=== PATIENT | male | born 1940 | race Caucasian/White ===

== ENCOUNTER → 2016-05-16 | Outpatient (CLI) | payer MEDICARE ==
[~2016-05-16] MED LIST: AMLODIPINE10 MG PO; ASPIRIN CHILDRE81 MG PO; CIPRO500 MG PO; CIPRODEX 0.3%-7.5 ML OT; CLOPIDOGREL75 MG PO; EFFEXOR PO; FLAGYL500 M1 PO; GLYBURIDE5 MG PO; LEVEMIR SC; LEXAPRO5 M1 PO; LISINOPRIL5 MG PO; LOPRESSOR25 MG PO; MECLIZINE HCL25 M2 PO; MECLIZINE25 MG PO; MEDROL DOSEPAK4 MG PO; METFORMIN500 MG PO; NORCO 5-325 TA1 EACH PO; PRINIVIL20 MG PO; PROVENTIL0.09 MG/A1 INH; SYNTHROID PO; SYNTHROID0.15 MG PO; VIBRAMYCIN100 MG PO; VICODIN ES 7501 TAB PO; Zofran4 MG PO
[2016-05-16 07:50] LABS: HEMATOCRIT 42.1 % (42.0-52.0); HEMOGLOBIN 13.7 g/dl (14.0-18.0); MEAN CELL VOLUME 88.3 fl (80.0-94.0); MEAN CORPUSCULAR HGB 28.7 pg (27.0-31.0); MEAN CORPUSCULAR HGB CONC 32.5 g/dl (33.0-37.0); RED BLOOD COUNT 4.77 10*6/uL (4.50-5.90); RED CELL DISTRI WIDTH 13.5 % (0-14.5); WHITE BLOOD COUNT 9.2 10*3/uL (4.8-10.8)
[2016-05-16 08:24] LABS: ALBUMIN 3.4 gm/dl (3.1-4.5); ALKALINE PHOSPHATASE 89 U/L (45-117); BILIRUBIN, TOTAL 0.5 mg/dl (0.2-1.0); BUN 22 mg/dl (7-24); CARBON DIOXIDE 27 mmol/L (21-32); CHLORIDE 106 mmol/L (98-107); CHOLESTEROL 143 mg/dL (<200); EST GLOM FILT AFRICAN AMERICAN > 60 ml/min; GLUCOSE 97 mg/dL (65-99); HDL CHOLESTEROL 44 mg/dl (40-60); LDL CHOLESTEROL 75 mg/dL (9-159); POTASSIUM 4.2 mmol/L (3.5-5.1); SGOT/AST 16 IU/L (3-35); SGPT/ALT 22 U/L (12-78); SODIUM 141 mmol/L (136-145); TOTAL PROTEIN 7.1 gm/dL (6.4-8.2); TRIGLYCERIDES 120 mg/dl (<150); VLDL CHOLESTEROL 24 mg/dL (6-40)
[2016-05-16 08:31] LABS: VITAMIN D, 25-HYDROXY 22.8 ng/mL (30-100)
== END | disposition home or self-care (01) ==
LOC: LAB 07:23
PROVIDERS: Internal Medicine
DX: E55.9 Vitamin D deficiency, unspecified (principal); I10 Essential (primary) hypertension; E11.9 Type 2 diabetes mellitus without complications

== ENCOUNTER 2016-05-24 13:47 | Emergency (ER) | payer MEDICARE ==
[~2016-05-24] VITALS: Ht 167.6 cm; Wt 90.7 kg
[2016-05-24 14:03] VITALS: BP 158/90
[2016-05-24] MEDS ORDERED: NAPROSYN500 MG PO (14:21)
== END 2016-05-24 15:27 | disposition home or self-care (01) ==
LOC: ED 13:47
DX: S40.011A Contusion of right shoulder, initial encounter (principal); S80.02XA Contusion of left knee, initial encounter; S30.0XXA Contusion of lower back and pelvis, initial encounter; F17.200 Nicotine dependence, unspecified, uncomplicated; F41.8 Other specified anxiety disorders; I10 Essential (primary) hypertension; E03.9 Hypothyroidism, unspecified; E11.9 Type 2 diabetes mellitus without complications; Z79.82 Long term (current) use of aspirin; W18.30XA Fall on same level, unspecified, initial encounter; Y93.89 Activity, other specified; Y92.9 Unspecified place or not applicable; Y99.9 Unspecified external cause status

== ENCOUNTER → 2016-06-12 | Outpatient (CLI) | payer MEDICARE ==
[~2016-06-12] MED LIST changes: +NAPROSYN500 MG PO
== END | disposition home or self-care (01) ==
LOC: US 04:54
DX: M79.662 Pain in left lower leg (principal)

== ENCOUNTER 2016-11-06 | Emergency (ER) | payer MEDICARE ==
[~2016-11-06] VITALS: Ht 167.6 cm; Wt 90.7 kg
[2016-11-06 00:05] VITALS: BP 159/99
[2016-11-06] MEDS ORDERED: ROBAXIN500 M1 PO (00:19)
[2016-11-06] MEDS ORDERED: ANAPROX DS550 MG PO (00:47)
== END 2016-11-06 01:11 | disposition home or self-care (01) ==
LOC: ED
DX: M51.36 Other intervertebral disc degeneration, lumbar region (principal); M54.5 Low back pain; F17.210 Nicotine dependence, cigarettes, uncomplicated; Z96.651 Presence of right artificial knee joint; Z98.890 Other specified postprocedural states; Z79.899 Other long term (current) drug therapy; Z79.82 Long term (current) use of aspirin

== ENCOUNTER → 2017-01-14 | Outpatient (CLI) | payer MEDICARE ==
[~2017-01-14] MED LIST changes: +ANAPROX DS550 MG PO; +ROBAXIN500 M1 PO
== END | disposition home or self-care (01) ==
LOC: US 00:04
DX: I73.9 Peripheral vascular disease, unspecified (principal); I74.3 Embolism and thrombosis of arteries of the lower extremities; I10 Essential (primary) hypertension; E11.9 Type 2 diabetes mellitus without complications

== ENCOUNTER → 2017-05-06 | Day surgery (SDC) | payer MEDICARE ==
[~2017-05-06] VITALS: Ht 167.6 cm; Wt 131.5 kg
--- NOTE | ~2017-05-06 | O ---
[place], [place] OPERATIVE NOTE NAME: [facility] [id number] UNIT #: [id number] ROOM: DOCTOR: ANDREAS WATERS MD BIRTHDATE: [birth year] DOS: 05/06/2017 PREOPERATIVE DIAGNOSIS: Cataract, left eye. POSTOPERATIVE DIAGNOSIS: Cataract, left eye. OPERATION: Extracapsular cataract extraction by phacoemulsification with posterior chamber intraocular lens implantation, left eye. ANESTHESIA: Monitored standby. OPERATIVE FINDINGS AND PROCEDURE: 2% Xylocaine topical anesthetic gel was applied to the eye in the preop area. The patient was taken to the operating room and prepped and draped in the standard fashion for sterile intraocular surgery. A time out procedure was performed verifying correct patient, correct site and corrects lens with Naga Waters MD. The operating microscope was swung into position and the lid speculum was inserted. Using a Elizabeth paracentesis blade, a paracentesis was made through clear cornea. Viscoelastic was used to fill the anterior chamber. Using a metal keratome a 2.4 mm self-sealing clear corneal cataract incision was made temporally at the limbus. Using a pre-bent 25 gauge cystotome needle, a standard continuous curvilinear capsulorrhexis was performed. The anterior capsule was removed with forceps. The lens nucleus was hydrodissected and phacoemulsified in the posterior chamber. Cortical material was removed with the irrigation aspiration hand piece and the posterior capsule was then polished with a curet under irrigation. The posterior chamber and capsular bag were filled with viscoelastic. A posterior chamber intraocular lens manufactured by: Tab, Model #[id number], and 18.5 diopters in strength were then inserted into the posterior chamber and within the capsular bag using the lens cartridge and injector system. Viscoelastic was removed using the irrigation aspiration handpiece. The anterior chamber was filled with balanced salt solution through the paracentesis. Both the paracentesis site and cataract incisions were hydrated with BSS and verified to be water-tight and self-sealing. Cefuroxime 1 mg/0.1 mL was injected into the anterior chamber through the paracentesis site. The incision checked to be water-tight using a Weck-Linda sponge. The integrity of the cataract wound and ocular tension were checked. Lid speculum and drapes were removed. The patient was transferred from the operating room to the recovery room in satisfactory condition. [place], [place] OPERATIVE NOTE NAME: FABIOLA LANRDY UNIT #: [id number] ROOM: DOCTOR: ANDREAS WATERS MD BIRTHDATE: [birth year] ANDREAS WATERS MD CM:OPRECORD:OPERATIVE NOTE [id number] ANDREAS WATERS MD 05/06/17 1001 interface
[2017-05-06 07:20] VITALS: BP 157/79
[2017-05-06 08:03] VITALS: BP 134/74
[2017-05-06 08:08] VITALS: BP 138/72
[2017-05-06 08:26] VITALS: BP 129/74
== END ==
LOC: SDC 05-01 08:00
DX: E11.36 Type 2 diabetes mellitus with diabetic cataract (principal); H25.812 Combined forms of age-related cataract, left eye; I10 Essential (primary) hypertension; Z96.653 Presence of artificial knee joint, bilateral; Z82.49 Family history of ischemic heart disease and other diseases of the circulatory system; E66.01 Morbid (severe) obesity due to excess calories; E07.89 Other specified disorders of thyroid; Z79.899 Other long term (current) drug therapy; M19.90 Unspecified osteoarthritis, unspecified site

== ENCOUNTER → 2017-05-22 | Outpatient (CLI) | payer OTHER, MEDICARE ==
[2017-05-22 08:16] LABS: BASO # 0.1 10*3/uL (0.0-0.1); BASO % 0.7 % (0.0-1.0); EOS # 0.3 10*3/uL (0.0-0.4); EOS % 3.2 % (1.0-4.0); HEMATOCRIT 42.9 % (42.0-52.0); HEMOGLOBIN 14.2 g/dl (14.0-18.0); LYMPH # 2.3 10*3/uL (1.3-4.4); LYMPH % 27.5 % (27.0-41.0); MEAN CELL VOLUME 87.9 fl (80.0-94.0); MEAN CORPUSCULAR HGB 29.1 pg (27.0-31.0); MEAN CORPUSCULAR HGB CONC 33.1 g/dl (33.0-37.0); MEAN PLATELET VOLUME 10.7 fl (9.6-12.3); MONO # 0.7 10*3/uL (0.1-1.0); MONO % 8.6 % (3.0-9.0); NEUT # 4.8 10*3/uL (2.3-7.9); NEUT % 58.8 % (47.0-73.0); PLATELET COUNT AUTOMATED 301 10*3/uL (130-400); RED BLOOD COUNT 4.88 10*6/uL (4.50-5.90); RED CELL DISTRI WIDTH 13.4 % (0-14.5); WHITE BLOOD COUNT 8.2 10*3/uL (4.8-10.8)
[2017-05-22 08:27] LABS: ALBUMIN 3.4 gm/dl (3.1-4.5); ALKALINE PHOSPHATASE 101 U/L (45-117); BUN 18 mg/dl (7-24); CHLORIDE 106 mmol/L (98-107); CHOLESTEROL 85 mg/dL (<200); CREATININE 1.03 mg/dL (0.70-1.30); HDL CHOLESTEROL 31 mg/dl (40-60); LDL CHOLESTEROL 30 mg/dL (9-159); SGOT/AST 13 IU/L (3-35); SGPT/ALT 19 U/L (12-78); SODIUM 142 mmol/L (136-145); TOTAL PROTEIN 7.2 gm/dL (6.4-8.2); TRIGLYCERIDES 121 mg/dl (<150); VLDL CHOLESTEROL 24 mg/dL (6-40)
[2017-05-22 08:33] LABS: THYROID STIM HORMONE (HS) 0.475 uIU/ml (0.358-4.75)
== END | disposition home or self-care (01) ==
LOC: LAB 07:28
PROVIDERS: Internal Medicine
DX: E11.42 Type 2 diabetes mellitus with diabetic polyneuropathy (principal); E78.2 Mixed hyperlipidemia

== ENCOUNTER → 2017-05-27 | Day surgery (SDC) | payer OTHER, MEDICARE ==
[~2017-05-27] VITALS: Ht 170.1 cm; Wt 131.5 kg
--- NOTE | ~2017-05-27 | O ---
[place], [place] OPERATIVE NOTE NAME: FABIOLA LANDRY [facility] #: [id number] UNIT #: [id number] ROOM: DOCTOR: ANDREAS WATERS MD BIRTHDATE: [birth year] DOS: 05/27/2017 PREOPERATIVE DIAGNOSIS: Cataract, right eye. POSTOPERATIVE DIAGNOSIS: Cataract, right eye. OPERATION: Extracapsular cataract extraction by phacoemulsification with posterior chamber intraocular lens implantation, right eye. ANESTHESIA: Monitored standby. OPERATIVE FINDINGS AND PROCEDURE: 2% Xylocaine topical anesthetic gel was applied to the eye in the preop area. The patient was taken to the operating room and prepped and draped in the standard fashion for sterile intraocular surgery. A time out procedure was performed verifying correct patient, correct site and corrects lens with Naga Waters M.D. The operating microscope was swung into position and the lid speculum was inserted. Using a Elizabeth paracentesis blade, a paracentesis was made through clear cornea. Viscoelastic was used to fill the anterior chamber. Using a metal keratome a 2.4 mm self-sealing clear corneal cataract incision was made temporally at the limbus. Using a pre-bent 25 gauge cystotome needle, a standard continuous curvilinear capsulorrhexis was performed. The anterior capsule was removed with forceps. The lens nucleus was hydrodissected and phacoemulsified in the posterior chamber. Cortical material was removed with the irrigation aspiration hand piece and the posterior capsule was then polished with a curet under irrigation. The posterior chamber and capsular bag were filled with viscoelastic. A posterior chamber intraocular lens manufactured by: Tab, Model #[id number], and 20.0 diopters in strength were then inserted into the posterior chamber and within the capsular bag using the lens cartridge and injector system. Viscoelastic was removed using the irrigation aspiration handpiece. The anterior chamber was filled with balanced salt solution through the paracentesis. Both the paracentesis site and cataract incisions were hydrated with BSS and verified to be water-tight and self-sealing. Cefuroxime 1 mg/0.1 mL was injected into the anterior chamber through the paracentesis site. The incision checked to be water-tight using a Weck-Linda sponge. The integrity of the cataract wound and ocular tension were checked. Lid speculum and drapes were removed. The patient was transferred from the operating room to the recovery room in satisfactory condition. [place], [place] OPERATIVE NOTE NAME: FABIOLA LANDRY UNIT #: [id number] ROOM: DOCTOR: ANDREAS WATERS MD BIRTHDATE: [birth year] ANDREAS WATERS MD CM:OPRECORD:OPERATIVE NOTE [id number] ANDREAS WATERS MD 05/27/17 1107 interface
[2017-05-27 10:12] VITALS: BP 144/84
[2017-05-27 10:46] VITALS: BP 133/75
[2017-05-27 11:01] VITALS: BP 155/85
[2017-05-27 11:16] VITALS: BP 150/87
== END | disposition home or self-care (01) ==
LOC: SDC 05-25 11:00
DX: E11.36 Type 2 diabetes mellitus with diabetic cataract (principal); I10 Essential (primary) hypertension; Z96.653 Presence of artificial knee joint, bilateral; Z82.49 Family history of ischemic heart disease and other diseases of the circulatory system; F17.210 Nicotine dependence, cigarettes, uncomplicated

== ENCOUNTER → 2017-08-19 | Outpatient (CLI) | payer OTHER, MEDICARE ==
[2017-08-19 02:48] LABS: BUN 22 mg/dl (7-24); CREATININE 0.98 mg/dL (0.70-1.30)
== END | disposition home or self-care (01) ==
LOC: LAB 01:20
PROVIDERS: Thoracic Surgery (Cardiothoracic Vascular Surgery)
DX: I73.9 Peripheral vascular disease, unspecified (principal)

== ENCOUNTER → 2017-10-22 | Outpatient (CLI) | payer OTHER, MEDICARE | END | disposition home or self-care (01) | LOC: CARD 12:00 | DX: I44.4 Left anterior fascicular block (principal); I73.9 Peripheral vascular disease, unspecified ==

== ENCOUNTER → 2017-12-07 | Outpatient (CLI) | payer OTHER, MEDICARE ==
[2017-12-07 12:17] LABS: HEMATOCRIT 40.2 % (42.0-52.0); HEMOGLOBIN 12.6 g/dl (14.0-18.0); MEAN CELL VOLUME 92.6 fl (80.0-94.0); MEAN CORPUSCULAR HGB CONC 31.3 g/dl (33.0-37.0); RED BLOOD COUNT 4.34 10*6/uL (4.50-5.90); RED CELL DISTRI WIDTH 14.5 % (0-14.5); WHITE BLOOD COUNT 8.6 10*3/uL (4.8-10.8)
[2017-12-07 12:32] LABS: ALBUMIN 3.9 gm/dl (3.1-4.5); ALKALINE PHOSPHATASE 85 U/L (45-117); BUN 16 mg/dl (7-24); CHLORIDE 104 mmol/L (98-107); CHOLESTEROL 152 mg/dL (<200); CREATININE 0.94 mg/dL (0.70-1.30); HDL CHOLESTEROL 35 mg/dl (40-60); LDL CHOLESTEROL 82 mg/dL (9-159); POTASSIUM 4.2 mmol/L (3.5-5.1); SGOT/AST 13 IU/L (3-35); SGPT/ALT 19 U/L (12-78); SODIUM 139 mmol/L (136-145); TOTAL PROTEIN 7.8 gm/dL (6.4-8.2); TRIGLYCERIDES 176 mg/dl (<150); VLDL CHOLESTEROL 35 mg/dL (6-40)
== END | disposition home or self-care (01) ==
LOC: LAB 11:45
PROVIDERS: Physician Assistant
DX: E11.42 Type 2 diabetes mellitus with diabetic polyneuropathy (principal)

== ENCOUNTER → 2017-12-17 | Outpatient (CLI) | payer OTHER, MEDICARE | END | disposition home or self-care (01) | LOC: US 02:38 | DX: I65.23 Occlusion and stenosis of bilateral carotid arteries (principal); E11.42 Type 2 diabetes mellitus with diabetic polyneuropathy; I10 Essential (primary) hypertension ==

== ENCOUNTER → 2018-05-30 | Outpatient (CLI) | payer OTHER, MEDICARE | END | disposition home or self-care (01) | LOC: LAB 00:26 | DX: J06.9 Acute upper respiratory infection, unspecified (principal) ==

== ENCOUNTER → 2018-08-30 | Outpatient (CLI) | payer OTHER, MEDICARE ==
[2018-08-30 03:07] LABS: MEAN CORPUSCULAR HGB 28.6 pg (27.0-31.0); MEAN CORPUSCULAR HGB CONC 31.8 g/dl (33.0-37.0); MEAN PLATELET VOLUME 11.1 fl (9.6-12.3); RED BLOOD COUNT 4.89 10*6/uL (4.50-5.90); RED CELL DISTRI WIDTH 13.5 % (0-14.5); WHITE BLOOD COUNT 8.1 10*3/uL (4.8-10.8)
[2018-08-30 03:24] LABS: ALBUMIN 3.7 gm/dl (3.1-4.5); BUN 22 mg/dl (7-24); CHLORIDE 105 mmol/L (98-107); CHOLESTEROL 165 mg/dL (<200); CREATININE 0.99 mg/dL (0.70-1.30); POTASSIUM 4.1 mmol/L (3.5-5.1); SGOT/AST 13 IU/L (3-35); SGPT/ALT 20 U/L (12-78); SODIUM 139 mmol/L (136-145); TOTAL PROTEIN 7.3 gm/dL (6.4-8.2); TRIGLYCERIDES 171 mg/dl (<150); VLDL CHOLESTEROL 34 mg/dL (6-40)
[2018-08-30 03:25] LABS: ALKALINE PHOSPHATASE 107 U/L (45-117); HDL CHOLESTEROL 34 mg/dl (40-60); LDL CHOLESTEROL 97 mg/dL (9-159)
== END | disposition home or self-care (01) ==
LOC: LAB 02:45
PROVIDERS: Physician Assistant
DX: E11.42 Type 2 diabetes mellitus with diabetic polyneuropathy (principal)

== ENCOUNTER 2018-11-12 13:12 | Inpatient (IN) | payer MEDICARE ==
[~2018-11-12] VITALS: Ht 167.6 cm; Wt 87.1 kg
[2018-11-12] VITALS (7 sets, daily range): BP systolic 125–160; BP diastolic 77–84
--- NOTE | 2018-11-12 13:30 | NUR ---
BGL 153.
[2018-11-12 13:37] LABS: BASO # 0.1 10*3/uL (0.0-0.1); BASO % 0.6 % (0.0-1.0); EOS # 0.2 10*3/uL (0.0-0.4); EOS % 2.2 % (1.0-4.0); HEMATOCRIT 44.7 % (42.0-52.0); HEMOGLOBIN 14.8 g/dl (14.0-18.0); LYMPH # 1.7 10*3/uL (1.3-4.4); LYMPH % 17.5 % (27.0-41.0); MEAN CELL VOLUME 87.3 fl (80.0-94.0); MEAN CORPUSCULAR HGB 28.9 pg (27.0-31.0); MEAN CORPUSCULAR HGB CONC 33.1 g/dl (33.0-37.0); MEAN PLATELET VOLUME 10.5 fl (9.6-12.3); MONO # 0.8 10*3/uL (0.1-1.0); MONO % 7.9 % (3.0-9.0); NEUT # 6.9 10*3/uL (2.3-7.9); NEUT % 70.9 % (47.0-73.0); PLATELET COUNT AUTOMATED 359 10*3/uL (130-400); RED BLOOD COUNT 5.12 10*6/uL (4.50-5.90); RED CELL DISTRI WIDTH 13.3 % (0-14.5); WHITE BLOOD COUNT 9.7 10*3/uL (4.8-10.8)
[2018-11-12 13:49] LABS: ACT PARTIAL THROMBO TIME 23.9 SECONDS (20.0-32.1); INTERNATIONAL NORM RATIO 0.9 (2.0-3.5)
[2018-11-12 13:54] LABS: ALBUMIN 3.7 gm/dl (3.1-4.5); ALKALINE PHOSPHATASE 108 U/L (45-117); BUN 20 mg/dl (7-24); CHLORIDE 107 mmol/L (98-107); CREATININE 1.05 mg/dL (0.70-1.30); POTASSIUM 3.9 mmol/L (3.5-5.1); SGOT/AST 11 IU/L (3-35); SGPT/ALT 21 U/L (12-78); SODIUM 139 mmol/L (136-145); TOTAL PROTEIN 7.8 gm/dL (6.4-8.2)
[2018-11-12 13:55] LABS: TROPONIN I < 0.015 ng/ml (<0.045)
--- NOTE | 2018-11-12 13:55 | NUR ---
UNABLE TO PROVIDE URINE SPECIMEN AT THSI TIME BUT STATES HE SHOULD BE ABLE TO GO SOON.
--- NOTE | 2018-11-12 14:38 | NUR ---
UPDATED AND CONTINUES TO REST COMFORTABLY. DENIES ANY NEEDS AND SIGNIFICANT OTHER IS AT THE BEDSIDE. WILL MONITOR.
--- NOTE | 2018-11-12 15:01 | NUR ---
Aware of plan to admit and continues to deny CP at this time. Appears less flushed and clammy and states he is feeling a bit better. Ambulatory to the bathroom for urine specimen.
--- NOTE | 2018-11-12 15:13 | NUR ---
Ambulated back to bed. Denied any CP or SOB. Awaiting room assignment. Will continue to monitor.
[2018-11-12 15:42] LABS: BILIRUBIN 1+ (NEGATIVE); BLOOD NEGATIVE (NEGATIVE); CLARITY CLEAR (CLEAR); COLOR YELLOW (YELLOW); GLUCOSE 1+ (NEGATIVE); KETONE NEGATIVE (NEGATIVE); LEUKO ESTERASE NEGATIVE (NEGATIVE); NITRITE NEGATIVE (NEGATIVE); PH 5.5 (5.0-9.0); SPECIFIC GRAVITY 1.025 (1.005-1.030); UROBILINOGEN 0.2 E.U./dl (0.2-1.0)
--- NOTE | 2018-11-12 15:47 | NUR ---
ADMITTING PHYSICIAN MEMBER AT THE BEDSIDE.
[2018-11-12 16:00] LABS: CALCIUM OXALATE CRYSTALS 3+; MUCOUS 3+
--- NOTE | 2018-11-12 16:08 | NUR ---
SPOKE WITH GIOVANA, RECEIVING RN TO ADVISE OF ETA. SHE IS READY FOR PATIENT.
--- NOTE | 2018-11-12 16:12 | NUR ---
Resident reports that he still had an EKG on patient. New EKG placed with chart for patient's admission.
--- NOTE | 2018-11-12 16:20 | NUR ---
A 77, admitted to , under the services of CAMILLE Moss DO with a diagnosis of CHEST PAIN, MODERATE CORONARY ARTERY RISK. Chief complaint is MIDSTERNAL CHEST PAIN THAT DOES NOT RADIATE. Patient arrived via stretcher from ER. Monitor applied. Initial assessment completed. Vital signs taken and recorded. CAMILLE MOSS DO notified of admission to the unit. Orders received. See assessment for past medical history, medications and allergies. Patient and/or family oriented to unit. [facility]. Clothing/patient valuable form completed. GIOVANA PRESTON
[2018-11-12] MEDS ORDERED: TOUJEO SOL300 UNIT/1 SQ (17:02)
--- NOTE | 2018-11-12 17:08 | NUR ---
MESSAGE LEFT WITH ANSWERING SERVICE FOR DR IGNACIO CONSULT.
--- NOTE | 2018-11-12 20:30 | NUR ---
PT RESTING IN BED. RESP-EASY AND REGULAR. NO C/O AT THIS TIME. CALL LIGHT IN REACH. SEE SHIFT ASSESSMENT.
--- NOTE | 2018-11-12 21:30 | NUR ---
CALLED DR. SIDDIQUI, SHE IS AWARE OF PT HOME MEDICATIONS NEEDING ORDERED.
--- NOTE | 2018-11-12 22:30 | NUR ---
RESTING IN BED. NO C/O PAIN AT THIS TIME. CALL LIGHT IN REACH.
[2018-11-13] VITALS: BP 144/68
--- NOTE | 2018-11-13 00:20 | NUR ---
RESTING IN BED. RESP-EASY AND REGULAR. NO C/O AT THIS TIME. CALL LIGHT IN REACH. SEE SHIFT ASSESSMENT.
--- NOTE | 2018-11-13 03:28 | NUR ---
24 HR chart check completed.
--- NOTE | 2018-11-13 04:00 | NUR ---
SLEEPING IN BED ON LEFT SIDE. RESP-EASY AND REGULAR. CALL LIGHT IN REACH.
--- NOTE | 2018-11-13 06:30 | NUR ---
AWAKENS EASILY. BSG-158, SEE EMAR. TOLERATED ROUTINE MEDS WITH NO PROBLEM. CALL LIGHT IN REACH.
[2018-11-13 07:06] LABS: BASO # 0.1 10*3/uL (0.0-0.1); BASO % 0.6 % (0.0-1.0); EOS # 0.3 10*3/uL (0.0-0.4); EOS % 2.9 % (1.0-4.0); HEMATOCRIT 43.1 % (42.0-52.0); LYMPH # 1.9 10*3/uL (1.3-4.4); LYMPH % 21.5 % (27.0-41.0); MEAN CORPUSCULAR HGB 28.6 pg (27.0-31.0); MEAN CORPUSCULAR HGB CONC 32.5 g/dl (33.0-37.0); MEAN PLATELET VOLUME 10.6 fl (9.6-12.3); MONO # 0.7 10*3/uL (0.1-1.0); MONO % 7.8 % (3.0-9.0); NEUT # 5.7 10*3/uL (2.3-7.9); NEUT % 65.9 % (47.0-73.0); PLATELET COUNT AUTOMATED 325 10*3/uL (130-400); RED CELL DISTRI WIDTH 13.5 % (0-14.5); WHITE BLOOD COUNT 8.7 10*3/uL (4.8-10.8)
[2018-11-13 07:17] LABS: ALBUMIN 3.4 gm/dl (3.1-4.5); BUN 18 mg/dl (7-24); CHLORIDE 105 mmol/L (98-107); POTASSIUM 3.7 mmol/L (3.5-5.1); SODIUM 137 mmol/L (136-145)
[2018-11-13 07:25] LABS: ALKALINE PHOSPHATASE 93 U/L (45-117); CHOLESTEROL 148 mg/dL (<200); CREATININE 0.88 mg/dL (0.70-1.30); HDL CHOLESTEROL 31 mg/dl (40-60); LDL CHOLESTEROL 81 mg/dL (9-159); PHOSPHOROUS 3.6 mg/dL (2.5-4.9); SGOT/AST 9 IU/L (3-35); SGPT/ALT 19 U/L (12-78); THYROID STIM HORMONE (HS) 0.485 uIU/ml (0.358-4.75); TRIGLYCERIDES 178 mg/dl (<150); VLDL CHOLESTEROL 36 mg/dL (6-40)
[2018-11-13 07:35] LABS: ACT PARTIAL THROMBO TIME 27.1 SECONDS (20.0-32.1)
[2018-11-13 08:00] VITALS: BP 158/82
[2018-11-13 08:04] LABS: VITAMIN D, 25-HYDROXY 22.4 ng/mL (30-100)
[2018-11-13 12:00] VITALS: BP 157/67
[2018-11-13 16:00] VITALS: BP 131/55
[2018-11-13 20:00] VITALS: BP 143/58
--- NOTE | 2018-11-13 20:00 | NUR ---
PT RESTING IN BED. RESP-EASY AND REGULAR. NO C/O AT THIS TIME. CALL LIGHT IN REACH. SEE SHIFT ASSESSMENT.
--- NOTE | 2018-11-13 22:50 | NUR ---
IV started right wrist with #22 angiocath after 1 attempts. The IV site was prepped with Chloraprep. Heparin lock attached. Sterile dressing applied. Patient tolerated precedure well. Procedure performed according to [facility] policy & procedure. DONG PLUNKETT
[2018-11-14] VITALS: BP 139/62
--- NOTE | 2018-11-14 | NUR ---
RESTING IN BED. NO C/O AT THIS TIME. CALL LIGHT IN REACH. SEE SHIFT ASSESSMENT.
--- NOTE | 2018-11-14 06:00 | NUR ---
TOLERATED ROUTINE MED WITH NO PROBLEM. BSG-139, SEE EMAR. CALL LIGHT IN REACH.
[2018-11-14 08:00] VITALS: BP 140/80
[2018-11-14 11:39] VITALS: BP 118/51
[2018-11-14 15:47] VITALS: BP 127/56
--- NOTE | 2018-11-14 19:30 | NUR ---
ASSUMED CARE OF PT AT THIS TIME. PT AWAKE, SITTING UP IN CHAIR. DENIES ANY NEEDS AT PRESENT TIME. WILL MONITOR. CALL LIGHT LEFT IN REACH.
[2018-11-14 20:00] VITALS: BP 128/59
--- NOTE | 2018-11-14 20:40 | NUR ---
SCHEDULED PO COREG GIVEN PER ORDER. HR 60S PER CM AT THIS TIME. WILL MONITOR.
[2018-11-15] VITALS: BP 132/53
--- NOTE | 2018-11-15 04:50 | NUR ---
PT ASLEEP IN BED. HR DIPPING INTO 40S AT TIMES PER CM. PT EASILY AROUSABLE. DENIES ANY NEW/WORSENING SYMPTOMS. WILL MONITOR. CALL LIGHT LEFT IN REACH.
--- NOTE | 2018-11-15 07:40 | NUR ---
PT AMBULATORY IN HIS ROOM. RESP-EASY AND REGULAR. NO C/O AT THIS TIME. CALL LIGHT IN REACH. SEE SHIFT ASSESSMENT.
[2018-11-15 08:00] VITALS: BP 148/80
--- NOTE | 2018-11-15 09:00 | NUR ---
Ice Cream Man in to talk to patient. Patient states lives at home with . There are few steps in the home. Physician: saira bhat [facility] Home health services: none Patient's level of ADLs: INDEPENDENT Patient has working utilities: all workin DME: none Follow-up physician's appointment after d/c: will be made by hospitalist nurse director upon discharge Does patient want to access PORTAL?: no Discharge plan discussed with patient, he lives at home with , he is independent in adls and ambulation, he states he will return home when medically stable, case management will follow for any needs. HEATHER BISHOP
--- NOTE | 2018-11-15 09:59 | NUR ---
PT OFF THE FLOOR FOR STRESS TEST.
--- NOTE | 2018-11-15 10:17 | NUR ---
INFORMED CONSENT SIGNED FOR LEXISCAN STRESS TEST WITH DR. GASTELUM. RESTING EKG NSR, HR 72, BP 130/68. PULSE OX 97% AND LUNGS CLEAR. COMPLETED ONE MINUTE OF LEXISCAN PROTOCOL RECEIVING LEXISCAN 0.4MG OVER 10 SECONDS. ISOLATED PVC NOTED WITH NO ST CHANGES. PT C/O WEIRD FEELING. LAST RECOVERY HR 88, BP 128/68. WAITING NUCLEAR SCANNING IN STABLE CONDITION.
[2018-11-15 12:00] VITALS: BP 147/66
--- NOTE | 2018-11-15 12:19 | NUR ---
BSG-201, SEE EMAR. TOLERATED ROUTINE MEDICATIONS. NO C/O AT THIS TIME. CALL LIGHT IN REACH.
--- NOTE | 2018-11-15 12:20 | NUR ---
PT SITTING UP IN RECLINER CHAIR. TOLERATED ROUTINE MEDS WITH NO PROBLEM. NO C/O AT THIS TIME. CALL LIGHT IN REACH.
--- NOTE | 2018-11-15 14:18 | NUR ---
SPOKE WITH DR. GASTELUM PT WILL BE TRANSFERRED FOR HEART CATH TOMORROW. PT IS AWARE DR. GASTELUM SPOKE WITH HIM. CALL LIGHT IN REACH.
[2018-11-15 15:50] VITALS: BP 140/59
--- NOTE | 2018-11-15 16:10 | NUR ---
PT RESTING IN RECLINER CHAIR. RESP-EASY AND REGULAR. NO C/O AT THIS TIME. CALL LIGHT IN REACH. SEE SHIFT ASSESSMENT.
[2018-11-15 20:00] VITALS: BP 125/55
--- NOTE | 2018-11-15 21:03 | NUR ---
DISCUSSED CURRENT VITALS WITH . AWARE OF + STRESS TEST, ECHO RESULTS, AND PLAN TO TRANSFER TO .' FOR HEART CATH. ALSO DISCUSSED COREG DUE AT 2200. INSTRUCTED TO HOLD COREG AT THIS TIME.
[2018-11-16] VITALS: BP 131/57
[2018-11-16 07:17] LABS: BASO # 0.1 10*3/uL (0.0-0.1); BASO % 0.8 % (0.0-1.0); EOS # 0.3 10*3/uL (0.0-0.4); EOS % 3.1 % (1.0-4.0); HEMATOCRIT 41.7 % (42.0-52.0); HEMOGLOBIN 13.3 g/dl (14.0-18.0); LYMPH # 1.8 10*3/uL (1.3-4.4); LYMPH % 19.3 % (27.0-41.0); MEAN CELL VOLUME 89.1 fl (80.0-94.0); MEAN CORPUSCULAR HGB 28.4 pg (27.0-31.0); MEAN CORPUSCULAR HGB CONC 31.9 g/dl (33.0-37.0); MEAN PLATELET VOLUME 10.6 fl (9.6-12.3); MONO # 1.1 10*3/uL (0.1-1.0); MONO % 11.7 % (3.0-9.0); NEUT # 5.8 10*3/uL (2.3-7.9); NEUT % 63.6 % (47.0-73.0); PLATELET COUNT AUTOMATED 318 10*3/uL (130-400); RED BLOOD COUNT 4.68 10*6/uL (4.50-5.90); RED CELL DISTRI WIDTH 13.3 % (0-14.5); WHITE BLOOD COUNT 9.1 10*3/uL (4.8-10.8)
--- NOTE | 2018-11-16 07:40 | NUR ---
PT TRANSFERRED TO [facility].
[2018-11-16 07:48] LABS: CREATININE 1.08 mg/dL (0.70-1.30)
== END 2018-11-16 07:40 | disposition short-term general hospital (02) | DRG 311 ==
LOC: ED 13:12 → EDHOLD 14:57 → 4E 14:57
PROVIDERS: Emergency Medicine; Internal Medicine; ADMIT Internal Medicine
PROC: 4A02XM4 Measurement of Cardiac Total Activity, External Approach (ICD-10-PCS; principal; 2018-11-15)
PROC: 3E073KZ Introduction of Other Diagnostic Substance into Coronary Artery, Percutaneous Approach (ICD-10-PCS; principal; 2018-11-15)
DX: I24.9 Acute ischemic heart disease, unspecified (principal); I10 Essential (primary) hypertension; E83.41 Hypermagnesemia; E11.65 Type 2 diabetes mellitus with hyperglycemia; R00.0 Tachycardia, unspecified; F41.9 Anxiety disorder, unspecified; F32.9 Major depressive disorder, single episode, unspecified; R00.1 Bradycardia, unspecified; I65.23 Occlusion and stenosis of bilateral carotid arteries; E03.9 Hypothyroidism, unspecified; Z96.653 Presence of artificial knee joint, bilateral; D72.810 Lymphocytopenia; R82.2 Biliuria; E66.9 Obesity, unspecified; E11.51 Type 2 diabetes mellitus with diabetic peripheral angiopathy without gangrene; Z79.4 Long term (current) use of insulin; Z82.49 Family history of ischemic heart disease and other diseases of the circulatory system; Z79.899 Other long term (current) drug therapy; Z79.02 Long term (current) use of antithrombotics/antiplatelets; Z79.82 Long term (current) use of aspirin; Z68.31 Body mass index [BMI] 31.0-31.9, adult

== ENCOUNTER → 2019-02-02 | Outpatient (CLI) | payer MEDICARE ==
[~2019-02-02] MED LIST changes: +TOUJEO SOL300 UNIT/1 SQ
[2019-02-02 12:17] LABS: BUN 20 mg/dl (7-24); CHLORIDE 104 mmol/L (98-107); CREATININE 1.28 mg/dL (0.70-1.30); SODIUM 138 mmol/L (136-145)
[2019-02-02 12:18] LABS: POTASSIUM 4.6 mmol/L (3.5-5.1)
== END | disposition home or self-care (01) ==
LOC: LAB 11:18
DX: I65.23 Occlusion and stenosis of bilateral carotid arteries (principal)

== ENCOUNTER → 2019-04-06 | Outpatient (CLI) | payer MEDICARE | END | disposition home or self-care (01) | LOC: CARD 07:25 | DX: I25.5 Ischemic cardiomyopathy (principal) ==

== ENCOUNTER → 2019-08-17 | Outpatient (CLI) | payer MEDICARE ==
[2019-08-17 07:54] LABS: BASO # 0.1 10*3/uL (0.0-0.1); BASO % 0.6 % (0.0-1.0); EOS # 0.3 10*3/uL (0.0-0.4); EOS % 2.9 % (1.0-4.0); HEMATOCRIT 43.4 % (42.0-52.0); LYMPH # 2.5 10*3/uL (1.3-4.4); LYMPH % 26.3 % (27.0-41.0); MEAN CELL VOLUME 92.1 fl (80.0-94.0); MEAN CORPUSCULAR HGB 29.1 pg (27.0-31.0); MEAN CORPUSCULAR HGB CONC 31.6 g/dl (33.0-37.0); MEAN PLATELET VOLUME 10.8 fl (9.6-12.3); MONO # 0.8 10*3/uL (0.1-1.0); MONO % 8.9 % (3.0-9.0); NEUT # 5.6 10*3/uL (2.3-7.9); PLATELET COUNT AUTOMATED 385 10*3/uL (130-400); RED BLOOD COUNT 4.71 10*6/uL (4.50-5.90); RED CELL DISTRI WIDTH 13.1 % (0-14.5); WHITE BLOOD COUNT 9.3 10*3/uL (4.8-10.8)
== END | disposition home or self-care (01) ==
LOC: LAB 06:10
PROVIDERS: Orthopaedic Surgery
DX: I10 Essential (primary) hypertension (principal); E78.5 Hyperlipidemia, unspecified; I25.10 Atherosclerotic heart disease of native coronary artery without angina pectoris; M25.569 Pain in unspecified knee

== ENCOUNTER → 2019-08-29 | Outpatient (CLI) | payer MEDICARE | END | disposition home or self-care (01) | LOC: NM 08-25 10:00 | DX: M16.0 Bilateral primary osteoarthritis of hip (principal); M51.36 Other intervertebral disc degeneration, lumbar region; M25.562 Pain in left knee; M60.862 Other myositis, left lower leg; Z96.653 Presence of artificial knee joint, bilateral ==

== ENCOUNTER → 2019-08-31 | Outpatient (CLI) | payer MEDICARE ==
[~2019-08-31] MED LIST changes: +PEPCID20 MG PO
[2019-08-31 17:49] LABS: BODY FLUID WBC 641 /uL
[2019-08-31 19:57] LABS: BF LYMPHOCYTES 24 %; BF MONOCYTES 70 %; BF NEUTROPHILS 6 %
[2019-08-31 21:12] LABS: BODY FLUID WBC 1770 /uL
[2019-09-01 10:09] LABS: ACID FAST SPEC PROCESSING Direct Inoculation (.)
[2019-10-16 15:06] LABS: ACID FAST CULTURE Negative (.)
== END | disposition home or self-care (01) ==
LOC: LAB 16:35
PROVIDERS: ATTEND Orthopaedic Surgery
DX: M25.461 Effusion, right knee (principal); M25.462 Effusion, left knee

== ENCOUNTER 2019-10-12 23:18 | Emergency (ER) | payer MEDICARE ==
[~2019-10-12] VITALS: Ht 167.6 cm; Wt 86.2 kg
[~2019-10-12 23:18] MED LIST changes: -PEPCID20 MG PO
[2019-10-12 23:21] VITALS: BP 151/64
[2019-10-13 00:48] LABS: BASO % 0.4 % (0.0-1.0); EOS % 0.9 % (1.0-4.0); HEMATOCRIT 44.4 % (42.0-52.0); LYMPH # 0.8 10*3/uL (1.3-4.4); LYMPH % 18.4 % (27.0-41.0); MEAN CELL VOLUME 88.8 fl (80.0-94.0); MEAN CORPUSCULAR HGB 27.4 pg (27.0-31.0); MEAN CORPUSCULAR HGB CONC 30.9 g/dl (33.0-37.0); MEAN PLATELET VOLUME 10.2 fl (9.6-12.3); MONO # 0.5 10*3/uL (0.1-1.0); MONO % 10.4 % (3.0-9.0); NEUT # 3.1 10*3/uL (2.3-7.9); PLATELET COUNT AUTOMATED 238 10*3/uL (130-400); RED CELL DISTRI WIDTH 13.6 % (0-14.5); WHITE BLOOD COUNT 4.5 10*3/uL (4.8-10.8)
[2019-10-13 01:03] LABS: ALBUMIN 3.3 gm/dl (3.1-4.5); ALKALINE PHOSPHATASE 84 U/L (45-117); BUN 14 mg/dl (7-24); CHLORIDE 108 mmol/L (98-107); CREATININE 0.89 mg/dL (0.70-1.30); POTASSIUM 4.1 mmol/L (3.5-5.1); SGOT/AST 28 IU/L (3-35); SGPT/ALT 21 U/L (12-78); SODIUM 138 mmol/L (136-145); TOTAL PROTEIN 7.3 gm/dL (6.4-8.2)
[2019-10-13 01:23] LABS: BILIRUBIN NEGATIVE (NEGATIVE); BLOOD NEGATIVE (NEGATIVE); CLARITY CLEAR (CLEAR); COLOR YELLOW (YELLOW); GLUCOSE 2+ (NEGATIVE); KETONE NEGATIVE (NEGATIVE)
[2019-10-13 01:24] LABS: LEUKO ESTERASE NEGATIVE (NEGATIVE); NITRITE NEGATIVE (NEGATIVE); UROBILINOGEN 0.2 E.U./dl (0.2-1.0)
[2019-10-13 01:35] LABS: WBC 0-2 wbc/hpf (0-5)
[2019-10-13] MEDS ORDERED: PEPCID20 MG PO (02:23)
== END 2019-10-13 03:07 | disposition home or self-care (01) ==
LOC: ED 23:18
PROVIDERS: Emergency Medicine
DX: B34.9 Viral infection, unspecified (principal); I10 Essential (primary) hypertension; E11.9 Type 2 diabetes mellitus without complications; Z79.4 Long term (current) use of insulin; Z79.899 Other long term (current) drug therapy

== ENCOUNTER → 2019-10-21 | Outpatient (CLI) | payer MEDICARE ==
[~2019-10-21] MED LIST changes: +PEPCID20 MG PO
[2019-10-21 12:08] LABS: BUN 15 mg/dl (7-24); CHLORIDE 107 mmol/L (98-107); CREATININE 0.82 mg/dL (0.70-1.30); SODIUM 140 mmol/L (136-145)
== END | disposition home or self-care (01) ==
LOC: LAB 11:07
PROVIDERS: ATTEND Surgery Vascular Surgery
DX: I65.23 Occlusion and stenosis of bilateral carotid arteries (principal)

== ENCOUNTER 2020-01-03 14:09 | Inpatient (IN) | payer MEDICARE ==
[~2020-01-03] VITALS: Ht 167.6 cm; Wt 90.7 kg
[2020-01-03 14:15] VITALS: BP 179/86
[2020-01-03 14:27] LABS: BASO % 0.5 % (0.0-1.0); EOS # 0.2 10*3/uL (0.0-0.4); EOS % 2.3 % (1.0-4.0); HEMATOCRIT 42.1 % (42.0-52.0); LYMPH # 1.6 10*3/uL (1.3-4.4); LYMPH % 19.5 % (27.0-41.0); MEAN CELL VOLUME 85.6 fl (80.0-94.0); MEAN CORPUSCULAR HGB 28.3 pg (27.0-31.0); MEAN PLATELET VOLUME 11.2 fl (9.6-12.3); MONO # 0.6 10*3/uL (0.1-1.0); MONO % 8.1 % (3.0-9.0); NEUT # 5.5 10*3/uL (2.3-7.9); NEUT % 68.7 % (47.0-73.0); PLATELET COUNT AUTOMATED 315 10*3/uL (130-400); RED BLOOD COUNT 4.92 10*6/uL (4.50-5.90); RED CELL DISTRI WIDTH 13.2 % (0-14.5); WHITE BLOOD COUNT 7.9 10*3/uL (4.8-10.8)
[2020-01-03 14:37] LABS: ACT PARTIAL THROMBO TIME 26.8 SECONDS (20.0-32.1); INTERNATIONAL NORM RATIO 0.9 (2.0-3.5)
[2020-01-03 14:48] LABS: ALBUMIN 3.8 gm/dl (3.1-4.5); ALKALINE PHOSPHATASE 127 U/L (45-117); BUN 23 mg/dl (7-24); CHLORIDE 98 mmol/L (98-107); CREATININE 1.23 mg/dL (0.70-1.30); SGOT/AST 18 IU/L (3-35); SGPT/ALT 24 U/L (12-78); SODIUM 130 mmol/L (136-145); TOTAL PROTEIN 8.2 gm/dL (6.4-8.2)
[2020-01-03 14:55] LABS: TROPONIN I < 0.015 ng/ml (<0.045)
--- NOTE | 2020-01-03 15:20 | NUR ---
PATIENT TO CT AT THIS TIME
--- NOTE | 2020-01-03 15:50 | NUR ---
PT TO CT
[2020-01-03 16:15] VITALS: BP 161/78
--- NOTE | 2020-01-03 16:32 | NUR ---
DR WASHBURN MADE AWARE PATIENT HR BRIEFLY DIPPING INTO THE 40S ON MULTIPLE OCCASSIONS
--- NOTE | 2020-01-03 16:38 | NUR ---
PATIENT REPORTS IMPROVEMENT OF PAIN
[2020-01-03 16:45] VITALS: BP 137/77
[2020-01-03 17:15] VITALS: BP 124/76
--- NOTE | 2020-01-03 18:34 | NUR ---
A 79, admitted to 4E, under the services of ASHLEIGH Gonzales DO with a diagnosis of RULE OUT NV. Chief complaint is CHEST PAIN. Patient arrived via stretcher from ER. Monitor applied. Initial assessment completed. Vital signs taken and recorded. ASHLEIGH GONZALES DO notified of admission to the unit. Orders received. See assessment for past medical history, medications and allergies. Patient and/or family oriented to unit. [facility] ROOM 406 visitation policy reviewed. Clothing/patient valuable form completed. ABIMBOLA PATTEN
[2020-01-03 20:00] VITALS: BP 143/74
--- NOTE | 2020-01-03 20:00 | NUR ---
DR. VILLEGAS REQUESTING BSG CHECK AT THIS TIME. BSG 456. STATED THAT [facility] PUT AN ORDER IN FOR IV INSULIN.
[2020-01-03] MEDS ORDERED: METOPROLOL SUCC50 M1 PO (20:06)
[2020-01-03] MEDS ORDERED: ATORVASTATIN CA40 M1 PO (20:07)
[2020-01-03] MEDS ORDERED: FUROSEMIDE20 M1 PO (20:07)
[2020-01-03] MEDS ORDERED: LEVOTHYROXINE150 MCG PO (20:08)
--- NOTE | 2020-01-03 20:22 | NUR ---
10 UNITS IV HUMULIN GIVEN PER ORDER. WILL RECHECK BSG AT 2100
--- NOTE | 2020-01-03 21:00 | NUR ---
BSG AT THIS TIME IS 337. SR. VILLEGAS NOTIFIED OF THIS AND UP TO DATE MEDICATIONS.
--- NOTE | 2020-01-03 22:19 | NUR ---
5 UNITS OF IV HUMULIN GIVEN PER ORDER. WILL RECHECK BSG AT 2300
--- NOTE | 2020-01-03 23:30 | NUR ---
PT BSG AT THIS TIME IS 293
[2020-01-04] VITALS: BP 111/62
--- NOTE | 2020-01-04 00:37 | NUR ---
HEPARIN GTT NOT CHANGED PER POLICY. APTT IS 70.0. THIS REQUIRES NO CHANGE
--- NOTE | 2020-01-04 02:02 | NUR ---
24 HR chart check completed.
--- NOTE | 2020-01-04 02:05 | NUR ---
PT SLEEPING AT THIS TIME. HEPARIN INFUSING WITHOUT DIFFICULTY. CALL LIGHT IN REACH
--- NOTE | 2020-01-04 04:00 | NUR ---
PT SLEEPING. RESPIRATIONS EASY. O2 INTACT. HEPARING INFUSING WITHOUT DIFFICULTY.
[2020-01-04 07:45] LABS: BASO # 0.1 10*3/uL (0.0-0.1); BASO % 0.5 % (0.0-1.0); EOS # 0.2 10*3/uL (0.0-0.4); EOS % 2.4 % (1.0-4.0); HEMATOCRIT 44.6 % (42.0-52.0); LYMPH # 1.6 10*3/uL (1.3-4.4); LYMPH % 17.2 % (27.0-41.0); MEAN CELL VOLUME 88.5 fl (80.0-94.0); MEAN CORPUSCULAR HGB 27.8 pg (27.0-31.0); MEAN CORPUSCULAR HGB CONC 31.4 g/dl (33.0-37.0); MEAN PLATELET VOLUME 11.4 fl (9.6-12.3); MONO # 0.7 10*3/uL (0.1-1.0); MONO % 7.2 % (3.0-9.0); NEUT # 6.9 10*3/uL (2.3-7.9); PLATELET COUNT AUTOMATED 298 10*3/uL (130-400); RED BLOOD COUNT 5.04 10*6/uL (4.50-5.90); RED CELL DISTRI WIDTH 13.4 % (0-14.5); WHITE BLOOD COUNT 9.5 10*3/uL (4.8-10.8)
[2020-01-04 07:57] LABS: ALBUMIN 3.2 gm/dl (3.1-4.5); ALKALINE PHOSPHATASE 109 U/L (45-117); BUN 19 mg/dl (7-24); CHLORIDE 101 mmol/L (98-107); CHOLESTEROL 104 mg/dL (<200); CREATININE 1.01 mg/dL (0.70-1.30); HDL CHOLESTEROL 38 mg/dl (40-60); LDL CHOLESTEROL 40 mg/dL (9-159); SGOT/AST 10 IU/L (3-35); SGPT/ALT 19 U/L (12-78); SODIUM 133 mmol/L (136-145); TOTAL PROTEIN 6.9 gm/dL (6.4-8.2); TRIGLYCERIDES 131 mg/dl (<150); VLDL CHOLESTEROL 26 mg/dL (6-40)
[2020-01-04 08:00] VITALS: BP 118/62
[2020-01-04 08:02] LABS: THYROID STIM HORMONE (HS) 0.866 uIU/ml (0.358-4.75)
--- NOTE | 2020-01-04 08:20 | NUR ---
PT RESTING IN BED. RESP-EASY AND REGULAR. DENIES ANY PAIN. IV INFUSING WITH NO PROBLEM. CALL LIGHT IN REACH. SEE SHIFT ASSESSMENT.
--- NOTE | 2020-01-04 09:00 | NUR ---
Glass Laminating Operator in to talk to patient. Patient states lives at home with . There are no steps in the home. Physician: saira bhat [facility] Home health services: none Patient's level of ADLs: INDEPENDENT Patient has working utilities: all working DME: none Follow-up physician's appointment after d/c: will be made by hospitalist nurse director upon discharge Does patient want to access PORTAL?: no Discharge plan discussed with patient, he lives at home with his , he is independent in adls and ambulation, works, drives, he will return home when discharged an denies any home needs, case management will follow. HEATHER BISHOP
--- NOTE | 2020-01-04 11:25 | NUR ---
PT RESTING IN BED. TOLERATED ROUTINE MED WITH NO PROBLEM. BSG-408, SEE EMAR. NO C/O PAIN AT THIS TIME. CALL LIGHT IN REACH.
[2020-01-04 12:00] VITALS: BP 112/74
--- NOTE | 2020-01-04 13:45 | NUR ---
OTOLARYNGOLOGY PHYSICIAN IN TO TALK TO PATIENT.
--- NOTE | 2020-01-04 15:30 | NUR ---
PT RESTING IN BED. BSG-227, SEE EMAR. NO C/O AT THIS TIME. CALL LIGHT IN REACH. SEE SHIFT ASSESSMENT.
[2020-01-04 16:00] VITALS: BP 118/62
--- NOTE | 2020-01-04 19:20 | NUR ---
REPORT RECEIVED. PT LYING IN BED. NO COMPLAINTS. CALL LIGHT IN REACH
[2020-01-04 20:00] VITALS: BP 132/55
--- NOTE | 2020-01-04 21:30 | NUR ---
IN TO SEE PT. WATCHING TV. NO COMPLAINTS. IV HEPARIN INFUSING WITHOUT DIFFICULTY, CALL LIGHT IN REACH
[2020-01-05] VITALS: BP 131/57
--- NOTE | 2020-01-05 | NUR ---
PT LYING IN BED SLEEPING
--- NOTE | 2020-01-05 03:00 | NUR ---
PT ASLEEP. RESPIRATIONS EASY AND UNLABORED. CALL LIGHT IN REACH
--- NOTE | 2020-01-05 06:00 | NUR ---
IN TO SEE PT. PT VERBALIZES NO COMPLAINTS. CALL LIGHT IN REACH
[2020-01-05 08:00] VITALS: BP 116/51
--- NOTE | 2020-01-05 09:00 | NUR ---
case management visits with patient, he is scheduled for a stress test today. he will return home when discharged and denies any home needs, case management will follow
--- NOTE | 2020-01-05 09:00 | NUR ---
PT SITTING UP IN RECLINER CHAIR. RESP-EASY AND REGULAR. DENIES ANY PAIN. CALL LIGHT IN REACH. SEE SHIFT ASSESSMENT.
--- NOTE | 2020-01-05 09:20 | NUR ---
PT ESCORTED VIA WHEELCHAIR TO CARDIAC REHAB FOR STRESS TEST.
--- NOTE | 2020-01-05 10:00 | NUR ---
INFORMED CONSENT OBTAINED FOR LEXISCAN NUCLEAR STRESS TESTING WITH DR. HOBSON. RESTING EKG SINUS BRADYCARDIA WITH A RESTING HR OF 57 WITH A RARE PVC AND RESTING BP OF 144/52. LUNGS CLEAR WITH SPO2 OF 97% ON ROOM AIR. PT COMPLETED A 1:00 LEXISCAN PROTOCOL RECEIVING LEXISCAN 0.4 MG IV OVER 10 SECONDS. HAD C/O FEELING OF SHORTNESS OF BREATH, WEIRD FEELING AND CHEST DISCOMFORT THAT WAS RELIEVED IN RECOVERY. EKG NONDIAGNOSTIC. HAD A PEAK HR OF 100 WITH BP OF 122/60. LAST RECOVERY HR OF 94 WITH BP OF 124/70. AWAITING SCANNING IN STABLE CONDITION.
[2020-01-05 12:00] VITALS: BP 147/62
--- NOTE | 2020-01-05 12:01 | NUR ---
PT SITTING UP IN RECLINER CHAIR. BSG-290, SEE EMAR. PT C/O EPIGASTRIC PAIN, FEELS LIKE IT DID 2 DAYS AGO. CALLED ABDIEL STOCKTON MADE AWARE. BLOODWORK ORDERED. AND GIVE PROTONIX. BP 147/62, HR-81. PULSE OX 98%RA. CALL LIGHT IN REACH.
--- NOTE | 2020-01-05 13:03 | NUR ---
CALLED ABDIEL STOCKTON MADE AWARE PT STATES EPIGASTRIC AREA PAIN IS GETTING WORSE. PT TRIED KIRSTEN VASYL EARLIER WITH NO RELIEF. PROTONIX WAS GIVEN EARLIER. MEDICATED WITH MORPHINE IV PER PRN ORDER, SEE EMAR. FOR C/O EPIGASTRIC AREA PAIN RATES PAIN 8 ON PAIN SCALE 0-10.
--- NOTE | 2020-01-05 13:09 | NUR ---
CALLED DR. GARCIA CELLPHONE MADE AWARE PT STATES CHDEST PAIN GETTING WORSE. MADE AWARE HE IS POINTING TO EPIGASTRIC AREA. TROPONIN NOT BACK YET. HE ORDERED EKG.
--- NOTE | 2020-01-05 13:12 | NUR ---
PT IN RECOINER CHAIR. STATES PAIN FEELS THE SAME. MADE AWARE EKG WAS ORDERED. WILL CON'T TO MONITOR.
--- NOTE | 2020-01-05 13:26 | NUR ---
DR. DAVIES ON THE FLOOR TO SEE EKG AND PT.
--- NOTE | 2020-01-05 13:32 | NUR ---
ABDIEL STOCKTON ON FLOOR TO SEE PT. OK TO GIVE ONE MORE DOSE OF MORPHINE PER ABDIEL.
--- NOTE | 2020-01-05 13:33 | NUR ---
PT MEDICATED WITH MORPHINE IV PER PRN ORDER, SEE EMAR. RATES PAIN 8 ON PAIN SCALE 0-10. FOR C/O EPIGASTRIC AREA PAIN. WILL CON'T TO MONITOR.
--- NOTE | 2020-01-05 13:45 | NUR ---
MEDICATED WITH GI COCKTAIL SEE EMAR. FOR EPIGASTRIC AREA PAIN, RATES PAIN 9 ON PAIN SCALE 0-10. WILL MONITOR.
--- NOTE | 2020-01-05 13:50 | NUR ---
CALLED ABDIEL MADE AWARE PT STATUS. PT STILL HAVING EPIGASTRIC PAIN, SHE WILL ORDERED GI COCKTAIL.
--- NOTE | 2020-01-05 13:53 | NUR ---
PT ORDERED NITRO, PT REFUSED TO TAKE NITRO AT THIS TIME. FEELS LIKE HE HAD REACTION TO IT IN THE PAST. EDUCATED PT ON MEDICATION. HE WANTS TO WAIT. STATES PAIN AT THIS TIME 6 ON PAIN SCALE 0-10.
--- NOTE | 2020-01-05 14:00 | NUR ---
PT RATES PAIN 3 ON PAIN SCALE 0-10. STATES MEDICATION IS HELPING.
--- NOTE | 2020-01-05 14:44 | NUR ---
PT RESTING IN BED WITH LAB GIRL AT HIS SIDE. STATES PAIN IS GETTING WORSE AGAIN PER PT. RATES PAIN 6 ON PAIN SCALE. MEDICATED WITH NITRO SL SEE EMAR. STAYED WITH PT. PT STARTING VOMITING AND BECAME PALE. CALLED ABDIEL AND MADE AWARE. ZOFRAN IV GIVEN. BP 142/54, HR-50'S. PULSE OX 99%RA. WILL MONITOR.
--- NOTE | 2020-01-05 14:56 | NUR ---
CALLED DR. HOBSON MADE AWARE PT GIVEN NITRO FOR PAIN AND ZOFRAN FOR VOMITING. HE DON'T FEEL HEART RELATED. WILL SEE HIM.
--- NOTE | 2020-01-05 15:01 | NUR ---
BSG-311, PT PALE, COOL TO TOUCH. C/O EPIGASTRIC PAIN, RATES PAIN 8 ON PAIN SCALE 0-10. STATES NOT GETTING ANY BETTER. SEE EMAR. ABDIEL CALLED AND SHE WILL BE UP TO SEE HIM. GIVE ATIVAN SEE EMAR. CALL LIGHT IN REACH.
--- NOTE | 2020-01-05 15:16 | NUR ---
MEDICATED WITH ATIVAN IV ONE TIME DOSE, SEE EMAR. PT ANXIOUS, OXYGEN APPLIED. RESP-28. BP 145/60, HR-56.
--- NOTE | 2020-01-05 15:31 | NUR ---
MEDICATED WITH MORPHINE IV FOR EPIGASTRIC PAIN, RATES PAIN 10 ON PAIN SCALE 0-10. PER ABDIEL ORDER OK TO GIVE THIS DOSE OF MORPHINE. CALL LIGHT IN REACH.
--- NOTE | 2020-01-05 15:46 | NUR ---
RATES PAIN 5 ON PAIN SCALE 0-10. MEDICATION HELP SOME. PT STILL HAVING PRESSURE. WILL MONITOR.
[2020-01-05 16:00] VITALS: BP 142/54
--- NOTE | 2020-01-05 16:04 | NUR ---
PT RESTING IN BED WITH EYES CLOSED. RESP-EASY AND REGULAR. OXYGEN IN USE AT THIS TIME. HEPARIN INFUSING. MEDICATION SEEMS TO BE HELPING AT THIS TIME.
--- NOTE | 2020-01-05 16:05 | NUR ---
DR. HOBSON IN ROOM TO SEE PT. STATES HE FEELS IT IS GI RELATED. NEEDS GI DOCTOR OR SURGEON.
--- NOTE | 2020-01-05 16:30 | NUR ---
SLEEPING IN BED. RESP-EASY AND REGULAR. NO SIGNS OF ACUTE DISTRESS NOTED. OXYGEN IN USE. MEDICATION HELPING. CALL LIGHT IN REACH.
--- NOTE | 2020-01-05 17:23 | NUR ---
CALLED DR. LEE MADE AWARE DR. HOBSON SUGGEST GI OR SURGERY CONSULT.
--- NOTE | 2020-01-05 17:49 | NUR ---
BSG-216, SKIN W/D. WILL MONITOR.
--- NOTE | 2020-01-05 17:51 | NUR ---
CALLED DR. HILTON CELL PHONE LEFT MESSAGE TO CALL REGARDING CONSULT.
--- NOTE | 2020-01-05 17:52 | NUR ---
CALLED DR. LEE REGARDING PT LASHING AROUND IN BED NOT ABLE TO GET COMFORTABLE IN PAIN. MEDICATED WITH TUMS PER ORDER, SEE EMAR. HE WILL PUT ORDER IN. MADE AWARE LEFT MESSAGE WITH DR. HILTON CELL PHONE REGARDING CONSULT.
--- NOTE | 2020-01-05 18:11 | NUR ---
ESCORTED VIA WHEELCHAIR TO RADIOLOGY FOR CT.
[2020-01-05 20:00] VITALS: BP 108/59
--- NOTE | 2020-01-05 21:27 | NUR ---
PT C/O OF EPIGASTRIC PAIN 07/02 PT REQUEST PRN PAIN MEDICATION. PT STATES HE WOULD RATHER TAKE A PAIN PILL THIS TIME. PAIN MEDCIATION PROVIDED PER PT REQUEST. WILL REASSES.
--- NOTE | 2020-01-05 22:44 | NUR ---
PT STATES PAIN IS 8/10 MID EPIGASTRIC PAIN. PT REQUEST PAIN MEDICATION AT THIS TIME. IV PAIN MEDICATION PROVIDED. WILL REASSESS.
--- NOTE | 2020-01-05 23:08 | NUR ---
SPOKE WITH DR DAVIES REGARDING CT SCAN RESULTS. AWAITING ORDERS.
--- NOTE | 2020-01-05 23:40 | NUR ---
PT RESTING WITH EYES CLOSED. NO C/O PAIN AT THIS TIME.
[2020-01-06] VITALS: BP 140/72
--- NOTE | 2020-01-06 02:53 | NUR ---
PT REQUEST PRN PAIN MEDICATION FPR 810 ABDOMINAL PAIN. PAIN MEDICATION PROVIDED.
--- NOTE | 2020-01-06 03:50 | NUR ---
PT STILL GRIMACING AND RATES PAIN 4/10. WILL REASSESS.
--- NOTE | 2020-01-06 05:44 | NUR ---
24 HR chart check completed.
--- NOTE | 2020-01-06 07:03 | NUR ---
PT REQUEST PAIN MEDICATION FOR 10/10 ABDOMINAL PAIN. IV PAIN MEDICATION GIVEN. WILL REASSESS
[2020-01-06 07:40] VITALS: BP 132/64
[2020-01-06 07:42] LABS: BILIRUBIN, DIRECT 0.4 mg/dL (0.0-0.2); TOTAL PROTEIN 7.5 gm/dL (6.4-8.2)
--- NOTE | 2020-01-06 07:52 | NUR ---
DR ALEMAN CONSULT CALLED. NEW ORDERS RECEIVED.
--- NOTE | 2020-01-06 08:16 | NUR ---
FENTANYL GIVEN FOR C/O ABDM. PAIN, RATES 10/10 ON PAIN SCALE. WILL MONITOR.
--- NOTE | 2020-01-06 09:00 | NUR ---
case management visits with patient, he will return home when discharged, no voiced home needs at this time
--- NOTE | 2020-01-06 09:20 | NUR ---
FENTANYL EEFECTIVE PER PT.
[2020-01-06 09:41] LABS: BASO % 0.1 % (0.0-1.0); HEMATOCRIT 45.2 % (42.0-52.0); LYMPH # 0.9 10*3/uL (1.3-4.4); LYMPH % 4.3 % (27.0-41.0); MEAN CELL VOLUME 88.8 fl (80.0-94.0); MEAN CORPUSCULAR HGB 28.1 pg (27.0-31.0); MEAN CORPUSCULAR HGB CONC 31.6 g/dl (33.0-37.0); MEAN PLATELET VOLUME 11.3 fl (9.6-12.3); MONO # 1.2 10*3/uL (0.1-1.0); MONO % 5.7 % (3.0-9.0); NEUT # 17.9 10*3/uL (2.3-7.9); NEUT % 89.3 % (47.0-73.0); PLATELET COUNT AUTOMATED 274 10*3/uL (130-400); RED BLOOD COUNT 5.09 10*6/uL (4.50-5.90); RED CELL DISTRI WIDTH 13.7 % (0-14.5); WHITE BLOOD COUNT 20.1 10*3/uL (4.8-10.8)
[2020-01-06 09:57] LABS: BUN 23 mg/dl (7-24); CHLORIDE 101 mmol/L (98-107); CREATININE 1.27 mg/dL (0.70-1.30); POTASSIUM 4.7 mmol/L (3.5-5.1); SODIUM 135 mmol/L (136-145)
[2020-01-06 12:00] VITALS: BP 120/64
--- NOTE | 2020-01-06 12:24 | NUR ---
MORPHINE GIVEN FOR C/O ADBM. PAIN. RATES 8/10 ON PAIN SCALE. WILL MONITOR.
--- NOTE | 2020-01-06 13:30 | NUR ---
MORPHINE HELPING, NOT FULLY EFFECTIVE PER PT.
[2020-01-06 16:00] VITALS: BP 106/59
--- NOTE | 2020-01-06 17:42 | NUR ---
MORPHINE GIVEN FOR C/O ABDM. PAIN. RATES 8/10 ON PAIN SCALE. WILL MONITOR.
[2020-01-06 20:00] VITALS: BP 118/63
--- NOTE | 2020-01-06 21:30 | NUR ---
PT SEEN AND ASSESSED. PT C/O PAIN 10/02. PT MEDICATED WITH IV PAIN MEDICATION PER PT REQUEST.
[2020-01-07] VITALS (14 sets, daily range): BP systolic 100–134; BP diastolic 38–69
[2020-01-07 06:03] LABS: BASO % 0.2 % (0.0-1.0); HEMATOCRIT 42.1 % (42.0-52.0); LYMPH # 0.8 10*3/uL (1.3-4.4); LYMPH % 4.6 % (27.0-41.0); MEAN CORPUSCULAR HGB 28.5 pg (27.0-31.0); MEAN CORPUSCULAR HGB CONC 32.1 g/dl (33.0-37.0); MEAN PLATELET VOLUME 11.7 fl (9.6-12.3); MONO # 1.3 10*3/uL (0.1-1.0); MONO % 7.3 % (3.0-9.0); NEUT % 87.1 % (47.0-73.0); PLATELET COUNT AUTOMATED 254 10*3/uL (130-400); RED BLOOD COUNT 4.73 10*6/uL (4.50-5.90); RED CELL DISTRI WIDTH 14.3 % (0-14.5); WHITE BLOOD COUNT 18.4 10*3/uL (4.8-10.8)
[2020-01-07 06:19] LABS: ACT PARTIAL THROMBO TIME 34.2 SECONDS (20.0-32.1); INTERNATIONAL NORM RATIO 1.2 (2.0-3.5)
[2020-01-07 06:30] LABS: ALBUMIN 2.3 gm/dl (3.1-4.5); BILIRUBIN, DIRECT 0.5 mg/dL (0.0-0.2); CREATININE 2.49 mg/dL (0.70-1.30); POTASSIUM 4.8 mmol/L (3.5-5.1); TOTAL PROTEIN 6.7 gm/dL (6.4-8.2)
--- NOTE | 2020-01-07 07:38 | NUR ---
OFF FLOOR TO SURGERY.
--- NOTE | 2020-01-07 12:06 | NUR ---
morphine given for c/o abdm. pain. 7/10 on pain scale. will monitor.
--- NOTE | 2020-01-07 13:10 | NUR ---
MORPHINE APPEARS EFFECTIVE PT RESTING IN BED WITH EYES CLOSED. WILL CONTINUE TO MONITOR.
--- NOTE | 2020-01-07 17:19 | NUR ---
MORPHINE GIVEN FOR C/O ABDM. PAIN. RATES 5/5 ON PAIN SCALE, WILL MONITOR.
--- NOTE | 2020-01-07 18:19 | NUR ---
MORPHINE APPEARS EFFECTIVE. PT RESTING IN BED WITH EYES CLOSED.
--- NOTE | 2020-01-07 19:30 | NUR ---
PATIENT SLEEPING. RESPERS EASY AND REGULAR ON 2L O2 VIA NC. WILL CONTINUE TO MONITOR.
--- NOTE | 2020-01-07 22:22 | NUR ---
ASSUMED CARE OF PATIENT. PATIENT IS AAOX3/LETHARGIC RESTING IN BED WITH EASY AND REGULAR RESPERS ON 2L O2 VIA NC. ASSESSMENT IS COMPLETE WITH NO S/S OF DISTRESS NOTED AT THIS TIME. PATIENT BED LINENS AND GOWN SITUATED AND PATIENT REPOSITIONED IN BED. 100 mL SANGUINEOUS DRAINAGE DRAINED FROM AYDEN DRAIN. PATIENT C/O ABDOMINAL PAIN RATING A 8/10. PRN NORCO GIVEN. BED IS LOW, LOCKED, AND CALL LIGHT IS WITHIN REACH. WILL CONTINUE TO MONITOR, SEE INTERVENTIONS.
--- NOTE | 2020-01-07 23:00 | NUR ---
PRN NORCO APPEARS EFFECTIVE. PATIENT IS SLEEPING WITH EASY AND REGULAR RESPERS ON 2L VIA NC. CALL LIGHT IS WITHIN REACH.
[2020-01-08] VITALS (14 sets, daily range): BP systolic 76–116; BP diastolic 40–68
--- NOTE | 2020-01-08 02:50 | NUR ---
CHART CHECK COMPLETE.
--- NOTE | 2020-01-08 04:59 | NUR ---
PRN NORCO GIVEN AT THIS TIME FOR C/O ABDOMINAL PAIN RATING A 5/10. CALL LIGHT IS WITHIN REACH. PATIENT POSITIONED IN RECLINING CHAIR, 100mL SANGUINEOUS FLUID DRAINED FROM AYDEN DRAIN. WILL CONTINUE TO MONITOR.
--- NOTE | 2020-01-08 05:59 | NUR ---
PRN NORCO APPEARS EFFECTIVE PATIENT SLEEPING IN RECLINING CHAIR AT THIS TIME. RESPERS EASY AND REGULAR ON 2L O2 VIA NC. CALL LIGHT IS WITHIN REACH.
[2020-01-08 08:10] LABS: HEMATOCRIT 36.3 % (42.0-52.0); MEAN CELL VOLUME 90.1 fl (80.0-94.0); MEAN CORPUSCULAR HGB 28.5 pg (27.0-31.0); MEAN CORPUSCULAR HGB CONC 31.7 g/dl (33.0-37.0); PLATELET COUNT AUTOMATED 230 10*3/uL (130-400); RED BLOOD COUNT 4.03 10*6/uL (4.50-5.90); RED CELL DISTRI WIDTH 14.6 % (0-14.5); WHITE BLOOD COUNT 11.1 10*3/uL (4.8-10.8)
--- NOTE | 2020-01-08 08:15 | NUR ---
ON FLOOR & AWARE OF PATIENT'S BLOOD PRESSURE - WILL RECHECK IN 1 HR.
[2020-01-08 08:22] LABS: ALBUMIN 1.8 gm/dl (3.1-4.5); CREATININE 3.44 mg/dL (0.70-1.30); POTASSIUM 5.2 mmol/L (3.5-5.1)
--- NOTE | 2020-01-08 09:30 | NUR ---
VALENTINO COHN FOR CONSULT.
[2020-01-08 09:45] LABS: PLATELET SUFFICIENCY NORMAL (NORMAL); TOTAL CELLS COUNTED 100 #CELLS
--- NOTE | 2020-01-08 11:23 | NUR ---
16fr BUSTILLOS CATH INSERTED PER POLICY/ORDERS. TOLERATED WELL. 300cc URINE OUT UPON INSERTION, DARK YELLOW/CLOUDY. CALL LIGHT IN REACH.
[2020-01-08 11:46] LABS: BILIRUBIN Negative (Negative); BLOOD Negative (Negative); CLARITY Cloudy (Clear); COLOR Dark Yellow (Yellow); GLUCOSE Trace (Negative); KETONE Trace (Negative); LEUKO ESTERASE Negative (Negative); NITRITE Negative (Negative); SPECIFIC GRAVITY 1.025 (1.001-1.030)
--- NOTE | 2020-01-08 12:00 | NUR ---
BP IMPROVED AT 99/43. PT A LITTLE MORE AWAKE, ABLE TO CARRY CONVERSATION. BUSTILLOS IS PATENT DRAINING DARK EUGENIA URINE. PT ENCOURAGED TO DRINK/CONSUME ICE CHIPS. ABD IS STILL DISTENDED, PT STATES HE IS PASSING GAS. PT C/O SOME PAIN BUT INFORMED HIM THAT I CANNOT GIVE PAIN MED UNTIL WE GET HIS BP INCREASED. PT UNDERSTANDS & GIVEN EXTRA PILLOW TO BRACE ON ABD. PT STILL HAS NO APPETITE BUT ENCOURAGED TO TAKE IN PO FLUIDS. CALL LIGHT IS WITHIN REACH.
[2020-01-08 12:12] LABS: BACTERIA 2+
[2020-01-08 13:47] LABS: URINE CHLORIDE, RANDOM < 10 mmol/L
--- NOTE | 2020-01-08 16:00 | NUR ---
NOTIFIED ON FLOOR REGARDING PATIENT'S CRACKLES TO THE LUNGS BASES AT THIS TIME.
--- NOTE | 2020-01-08 17:15 | NUR ---
ASSISTED PATIENT IN SITTING UP ON BEDSIDE COMMODE AT THIS TIME. PATIENT ATTEMPTED TO MOVE BOWELS BUT WAS UNABLE. PER PATIENT, HE DID PASS SOME GAS.
--- NOTE | 2020-01-08 19:13 | NUR ---
CHART CHECK COMPLETE.
--- NOTE | 2020-01-08 19:18 | NUR ---
REPORT RECIEVED FROM PREVIOUS RN.
--- NOTE | 2020-01-08 19:45 | NUR ---
ASSUMED CARE OF PATIENT. PATIENT IS AAOX3/LETHARGIC RESTING IN CHAIR WITH EASY AND REGULAR RESPERS ON 2L O2 VIA NC. ASSESSMENT IS COMPLETE WITH NO C/O OR S/S OF DISTRESS NOTED AT THIS TIME. CALL LIGHT IS WITHIN REACH. IV FLUIDS INFUSING PER ORDER. WILL CONTINUE TO MONITOR, SEE INTERVENTIONS.
--- NOTE | 2020-01-08 23:07 | NUR ---
PRN MORPHINE GIVEN AT THIS TIME FOR C/O ABDOMINAL PAIN RATING A 9/10. CALL LIGHT IS WITHIN REACH, WILL MONITOR EFFECT. PATIENT WOULD LIKE TO SLEEP IN RECLING CHAIR.
--- NOTE | 2020-01-08 23:40 | NUR ---
RESTING IN RECLINER CHAIR. OXYGEN IN USE. PT RESTLESS AND MEDICATED WITH RESTORIL PO FOR INSOMNIA. SEE EMAR. CALL LIGHT IN REACH.
[2020-01-09] VITALS: BP 122/57
--- NOTE | 2020-01-09 00:40 | NUR ---
PRN RESTORIL APPEARS EFFECTIVE, PATIENT IS SLEEPING WITH EASY AND REGULAR RESPERS ON 2L O2 VIA NC. CALL LIGHT IS WITHIN REACH. WILL CONTINUE TO MONITOR.
--- NOTE | 2020-01-09 02:23 | NUR ---
PRN MORPHINE GIVEN FOR ABDOMINAL PAIN RATING A 6/10. CALL LIGHT IS WITHIN REACH, WILL MONITOR EFFECT.
--- NOTE | 2020-01-09 03:00 | NUR ---
PRN MORPHINE APPEARS EFFECTIVE. SLEEPING RESPERS EASY AND REGULAR ON 2L O2 VIA NC. CALL LIGHT IS WITHIN REACH. WILL CONTINUE TO MONITOR.
[2020-01-09 06:27] LABS: BASO % 0.2 % (0.0-1.0); HEMATOCRIT 37.4 % (42.0-52.0); LYMPH # 0.6 10*3/uL (1.3-4.4); LYMPH % 4.9 % (27.0-41.0); MEAN CELL VOLUME 92.1 fl (80.0-94.0); MEAN CORPUSCULAR HGB 27.8 pg (27.0-31.0); MEAN CORPUSCULAR HGB CONC 30.2 g/dl (33.0-37.0); MEAN PLATELET VOLUME 11.7 fl (9.6-12.3); MONO # 1.1 10*3/uL (0.1-1.0); MONO % 8.8 % (3.0-9.0); NEUT # 10.8 10*3/uL (2.3-7.9); NEUT % 85.2 % (47.0-73.0); PLATELET COUNT AUTOMATED 236 10*3/uL (130-400); RED BLOOD COUNT 4.06 10*6/uL (4.50-5.90); RED CELL DISTRI WIDTH 15.1 % (0-14.5); WHITE BLOOD COUNT 12.7 10*3/uL (4.8-10.8)
[2020-01-09 06:34] LABS: ALBUMIN 2.4 gm/dl (3.1-4.5); POTASSIUM 4.5 mmol/L (3.5-5.1)
[2020-01-09 06:38] LABS: CREATININE 2.7 mg/dL (0.70-1.30); TOTAL PROTEIN 6.3 gm/dL (6.4-8.2)
[2020-01-09 08:00] VITALS: BP 134/67
--- NOTE | 2020-01-09 09:42 | NUR ---
NOTIFIED OF ELEVATED LIVER ENZYMES
[2020-01-09 12:00] VITALS: BP 137/77
--- NOTE | 2020-01-09 13:19 | NUR ---
14FR NG TUBE INSERTED INTO RT NARES WITHOUT ISSUES. TOLERATED FAIRLY WELL. CXR ORDERED PER POLICY. WILL MONITOR FOR PLACEMENT RESULTS.
[2020-01-09 16:00] VITALS: BP 148/81
[2020-01-09 20:00] VITALS: BP 140/69
[2020-01-10] VITALS: BP 158/71
[2020-01-10 04:00] VITALS: BP 154/72
[2020-01-10 06:19] LABS: HEMATOCRIT 40.2 % (42.0-52.0); MEAN CORPUSCULAR HGB 28.1 pg (27.0-31.0); MEAN CORPUSCULAR HGB CONC 30.8 g/dl (33.0-37.0); MEAN PLATELET VOLUME 11.3 fl (9.6-12.3); PLATELET COUNT AUTOMATED 255 10*3/uL (130-400); RED BLOOD COUNT 4.42 10*6/uL (4.50-5.90); WHITE BLOOD COUNT 13.2 10*3/uL (4.8-10.8)
[2020-01-10 06:32] LABS: ALBUMIN 2.1 gm/dl (3.1-4.5); CREATININE 1.81 mg/dL (0.70-1.30); POTASSIUM 4.2 mmol/L (3.5-5.1); TOTAL PROTEIN 6.2 gm/dL (6.4-8.2)
[2020-01-10 07:28] LABS: TOTAL CELLS COUNTED 100 #CELLS
[2020-01-10 07:29] LABS: PLATELET SUFFICIENCY NORMAL (NORMAL)
[2020-01-10 08:00] VITALS: BP 142/76
--- NOTE | 2020-01-10 09:00 | NUR ---
case management visits with patient, he will return home when discharged. patient continues with npo status and oxygen, patient does not have any home oxygen, case management will follow
[2020-01-10 12:00] VITALS: BP 163/75
--- NOTE | 2020-01-10 12:31 | NUR ---
DR. ALEMAN HAS ROUNDED AND IS AWARE OF NGT OUTPUT AND BLOOD SUGAR. NEW ORDER FOR IVF.
--- NOTE | 2020-01-10 15:52 | NUR ---
MEDICATED WITH PRN MORPHINE PER ORDER AND REQUEST. LOWER ABDOMINAL/CATHETER PAIN. DR. CURRY HAS ROUNDED.
[2020-01-10 16:00] VITALS: BP 164/88
--- NOTE | 2020-01-10 17:00 | NUR ---
PAIN LOWER ABDOMEN AGAIN IN WAVES. DID BLADDER SCAN WHICH REVEALED 783. CHANGED BUSTILLOS. WHICH IMMEDIATELY DRAINED 1200 STRAW URINE. LOWER PRESSURE RELIEVED IN ABDOMEN.
[2020-01-10 20:00] VITALS: BP 166/85
--- NOTE | 2020-01-10 20:00 | NUR ---
PATIENT LAYING IN BED. VOICES NO COMPLAINTS AT THIS TIME. ALERTX3. RESPIRATIONS EASY, NON LABORED.NO SIGNS OF DISTRESS. NG TUBE INTACT, BUSTILLOS DRAINING STRAW COLOR URINE. BED IN LOWEST POSITION,CALL LIGHT WITHIN REACH. BED ALARM ON. WILL CONTINUE TO MONITOR.
--- NOTE | 2020-01-10 23:56 | NUR ---
PATIENTS NG TUBE ACCIDENTALLY GOT PULLED ON BY PATIENT. CHEST XRAY TO CHECK PLACEMENT ORDERED PER POLICY. WILL CONTINUE TO MONITOR.
[2020-01-11] VITALS (7 sets, daily range): BP systolic 118–165; BP diastolic 68–81
--- NOTE | 2020-01-11 00:32 | NUR ---
PATIENT MEDICATED WITH ONE TIME DOSE OF IV ATIVAN FOR ANXIETY. NURSE TO ASSESS EFFECTIVENESS. CALL LIGHT IN REACH.
--- NOTE | 2020-01-11 01:21 | NUR ---
NOTIFIED DR. YEUNG OF PATIENT CHEST XRAY RESULTS. STATED TO SLOW FLUIDS DOWN TO 70/HR AND CONTINUE TO MONITOR PATIENT BLOOD SUGARS.
--- NOTE | 2020-01-11 01:30 | NUR ---
PATIENT SLEEPING. NO SIGNS OF DISTRESS. WILL CONTINUE TO MONITOR.
--- NOTE | 2020-01-11 02:00 | NUR ---
PATIENT FOUND ON FLOOR. PATIENT DENIES HITTING HEAD. VOICES NO COMPLAINTS AT THIS TIME. PATIENTS VITAL SIGNS TAKEN. VSS. PATIENT HELPED INTO BED. IV AND NG TUBE RIPPED OUT. NOTIFIED DR. YEUNG OF UNWITNESSED FALL. STAT CT OF THE HEAD ORDERED. SUPERVISOR SHUTTLE FITTING MADE AWARE OF FALL. PATIENT DOES NOT WANT FAMILY NOTIFIED OF FALL. 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
--- NOTE | 2020-01-11 03:00 | NUR ---
NEW IV STARTED IN [facility] ON FIRST ATTEMPT.
--- NOTE | 2020-01-11 03:05 | NUR ---
NG REINSERTED INTO LEFT NOSTRIL. PATIENT TOLERATED WELL. CHEST XRAY ORDERED TO COMFIRM PLACEMENT
[2020-01-11 07:03] LABS: HEMATOCRIT 38.8 % (42.0-52.0); MEAN CELL VOLUME 89.4 fl (80.0-94.0); MEAN CORPUSCULAR HGB 28.1 pg (27.0-31.0); MEAN CORPUSCULAR HGB CONC 31.4 g/dl (33.0-37.0); MEAN PLATELET VOLUME 11.1 fl (9.6-12.3); PLATELET COUNT AUTOMATED 254 10*3/uL (130-400); RED BLOOD COUNT 4.34 10*6/uL (4.50-5.90); RED CELL DISTRI WIDTH 14.6 % (0-14.5); WHITE BLOOD COUNT 14.1 10*3/uL (4.8-10.8)
[2020-01-11 07:26] LABS: POTASSIUM 3.8 mmol/L (3.5-5.1)
[2020-01-11 07:35] LABS: ALBUMIN 1.9 gm/dl (3.1-4.5); CREATININE 1.39 mg/dL (0.70-1.30)
--- NOTE | 2020-01-11 08:45 | NUR ---
PHYSICAL THERAPY Physical Therapy evaluation completed on 4th floor with full evaluation to follow. Recommend physical therapy per plan of care and SNF but pt states he will return home upon discharge. Thank you for this referral. Jermaine Raines SPT Nila Jaramillo PT
[2020-01-11 08:51] LABS: PLATELET SUFFICIENCY NORMAL (NORMAL); TOTAL CELLS COUNTED 100 #CELLS
--- NOTE | 2020-01-11 09:00 | NUR ---
Occupational Therapy evaluation completed on 4 with full eval to follow. Precautions include guadarrama catheter,AYDEN drain,IV UE,high complexity level 76877. Recommend OT per POC and SNF upon d/c. Patient firmly refuses SNF and HH at this time. Thank you. Vida Fontanez OTR/L
--- NOTE | 2020-01-11 19:30 | NUR ---
PATIENT C/O 10/[address] YEUNG. 1 MG IV MORPHINE ORDERED.
--- NOTE | 2020-01-11 20:00 | NUR ---
PATIENT MEDICATED WITH IV MORPHINE AT THIS TIME. RATES ABDOMINAL PAIN /. WILL CHECK EFFECTIVENESS.
--- NOTE | 2020-01-11 21:45 | NUR ---
PATIENT SLEEPING IN CHAIR. NO SIGNS OF DISTRESS. RESPIRATIONS EASY, NON LABORED. CALL LIGHT WITHIN REACH, CHAIR ALARM INTACT. WILL CONTINUE TO MONITOR.
--- NOTE | 2020-01-11 22:00 | NUR ---
PATIENT SLEEPING. MORPHINE EFFECTIVE. WILL CONTINUE TO MONITOR.
[2020-01-12] VITALS: BP 142/81
[2020-01-12 06:35] LABS: HEMATOCRIT 38.9 % (42.0-52.0); MEAN CELL VOLUME 89.4 fl (80.0-94.0); MEAN CORPUSCULAR HGB CONC 31.4 g/dl (33.0-37.0); MEAN PLATELET VOLUME 11.3 fl (9.6-12.3); PLATELET COUNT AUTOMATED 224 10*3/uL (130-400); RED BLOOD COUNT 4.35 10*6/uL (4.50-5.90); RED CELL DISTRI WIDTH 14.5 % (0-14.5)
[2020-01-12 06:47] LABS: BUN 29 mg/dl (7-24); CHLORIDE 110 mmol/L (98-107); CREATININE 1.09 mg/dL (0.70-1.30); POTASSIUM 3.6 mmol/L (3.5-5.1); SODIUM 141 mmol/L (136-145)
[2020-01-12 07:52] LABS: PLATELET SUFFICIENCY NORMAL (NORMAL); TOTAL CELLS COUNTED 100 #CELLS
[2020-01-12 08:00] VITALS: BP 158/70
--- NOTE | 2020-01-12 09:00 | NUR ---
case management visits with patient, he was sitting in recliner in room, nasal o2 on, n/g tube present. discussed with him a discharge plan including a short term assisted for 5 days of rehab and 24 hour care. he declined stated he would return home with his who is in healthcare. patient's nurse stated called and stated she wanted him to return home with her when discharged. discussed with him [facility] and he was receptive to this. given choice of companies he chose [facility]. will send referral to [facility] for when patient is discharged
--- NOTE | 2020-01-12 09:00 | NUR ---
PHYSICAL THERAPY Patient seen this am 1;1 for therapy visit and was sitting up in bedside chair upon therapist arrival. Patient identified by name / and presents with continuos O2-1.5L via NC, multiple IV treatments, NG tube. Patient reports mild 2/10 upper abdominal pain, inculding c/o L knee patella discomfort. Patient completed sit to stand transfer MIN A, use of wh walker standing support. Patient tolerated 2-3 minutes static stand, reporting no increase in pain c/o and able to weight shift side to side for improved comfort. Patient was incontinent of bowel, declining use of BSC and was assisted by OT automotive service assistant for patient care. Patient returned to bedside chair and remained with B LE's elevated in semi reclined position. Patient also remained with call light, tray table, telephone and body alarm for safety. Will continue per POC as tolerated, total treatment time 16 minutes. Sven Salgado, MEAT COOLER
--- NOTE | 2020-01-12 09:15 | NUR ---
OT NOTE Pt was seen this A.M. 1:1 for 20 minute OT session. Upon arrival pt was sitting upright in the recliner. Pt identified by name and and had complaints of 2/10 abdominal pain and presented to therapy with continuous 1.5L-O2 via NC and NG tube which he remained on throughout the entire session. Pt completed sit to stand from chair level with Tiny and use of w/w for UE support. Challenged pt's static standing tolerance needed for increased I in self care tasks and functional transfers. Pt was able to tolerate aprox 7 minutes before sitting due to fatigue. While standing pt began to have a BM. Offered the bedside commode to pt which would have consisted of a standing pivot and pt refused commode transfer/use stating "it's not comfortable" and continued to stand while having BM. Pt's floor and legs were then cleaned up. B socks doffed and new donned with maxA. Pt was left sitting upright in the recliner with call light in hand, tray table in place, and body alarm activated for safety. Continue with rec D/C plan to SNF or Home health. JANNET Mendoza/Galina
[2020-01-12 12:00] VITALS: BP 138/50
--- NOTE | 2020-01-12 12:12 | NUR ---
case management received a message that [facility] did not accept his insurance. will send referral to [facility], they do accept patient's insurance
[2020-01-12 16:00] VITALS: BP 160/88
[2020-01-12 20:00] VITALS: BP 133/67
[2020-01-13] VITALS: BP 155/76
[2020-01-13 02:00] VITALS: BP 137/70
[2020-01-13 07:02] LABS: HEMATOCRIT 36.3 % (42.0-52.0); MEAN CELL VOLUME 89.4 fl (80.0-94.0); MEAN CORPUSCULAR HGB 28.1 pg (27.0-31.0); MEAN CORPUSCULAR HGB CONC 31.4 g/dl (33.0-37.0); MEAN PLATELET VOLUME 10.9 fl (9.6-12.3); PLATELET COUNT AUTOMATED 272 10*3/uL (130-400); RED BLOOD COUNT 4.06 10*6/uL (4.50-5.90); RED CELL DISTRI WIDTH 14.1 % (0-14.5); WHITE BLOOD COUNT 14.7 10*3/uL (4.8-10.8)
[2020-01-13 07:28] LABS: CHLORIDE 106 mmol/L (98-107); POTASSIUM 3.1 mmol/L (3.5-5.1); SODIUM 138 mmol/L (136-145)
[2020-01-13 07:30] LABS: BUN 18 mg/dl (7-24)
[2020-01-13 08:00] VITALS: BP 168/87
[2020-01-13 08:17] LABS: TOTAL CELLS COUNTED 100 #CELLS
[2020-01-13 08:18] LABS: PLATELET SUFFICIENCY NORMAL (NORMAL)
[2020-01-13 08:19] LABS: POLYCHROMASIA SLIGHT
--- NOTE | 2020-01-13 08:26 | NUR ---
PHYSICAL THERAPY PT SUPINE IN BED WITH 1.5L O2 VIA NASAL CANULA AND IV. PT IDENTIFIED BY NAME AND . PT AGREED TO ALL PHYSICAL THERAPY TREATMENT. PT REPORTED 10/10 PAIN IN L KNEE AND 4/10 PAIN IN "BELLY". PT PERFORMED SUPINE TO SIT EOB WITH Liz X 1 AND VC'S TO USE BED RAIL FOR ASSISTNACE. PT PERFORMED STS FROM EOB TO FWW, TO AND FROM TOILET AND TO RECLINER FROM FWW ALL WITH CGA. PT GAIT TRAINED 15FT X2 WITH FWW AND CGA. MANUAL PATELLER TRACKING AND POSTERIOR/ LATERAL AND MEDICAL KNEE SOFT TISSUE RELEASE. PT SITTING IN RECLINER AT END OF SESSION WITH O2 VIA NASAL CANULA AND IV. PT REPORTED NO OTHER NEEDS AT THIS TIME. CALL LIGHT IN HAND. PT SEEN 1:1 FOR 25MINS. KARIN BANSAL PTA
--- NOTE | 2020-01-13 08:46 | NUR ---
OT NOTE Pt was seen this A.M. 1:1 for 20 minute OT session. Upon arrival pt was supine in bed. Pt identified by name and and had complaints of 4/10 abdominal pain and 10/10 L knee pain. Pt presented to therapy with continuous 1.5L-O2 via NC which he remained on throughout the entire session. Pt transferred supine to sit EOB with Tiny for assist with upper body. Upon inital rise to the EOB pt presented with complaints of mild dizziness. Pt was educated on visual fixation and after aprox 30 seconds pt had no other complaints. Sit to stand completed from bed level with CGA and use of w/w for UE support. Functional mobility completed to the bathroom with CGA and use of w/w. There he transferred on/off standard commode with CGA and use of grab bar for UE support. Clothing management completed with CGA and toilet hygiene completed with Tiny. Functional mobility then completed back to the recliner with CGA and use of w/w. There he was left sitting reclined with call light in hand, tray table in place, and phone in reach. Continue with rec D/C plan to SNF or home with home health. JANNET Mendoza/Galina
--- NOTE | 2020-01-13 09:00 | NUR ---
case management visits with patient, he was sitting up in chair in his room with oxygen on at 3l. he stated he would return home when discharged. educated him he would have [facility] to see him. patient was agreeable, case mangement will follow
--- NOTE | 2020-01-13 10:13 | NUR ---
DISCONTINUED BUSTILLOS CATH PER ORDERS. TOLERATED WELL.
--- NOTE | 2020-01-13 10:21 | NUR ---
DR. SIDDIQUI INFORMED THAT PATIENT IS HAVING RLQ ABDOMINAL PAIN. SHE STATED SHE WILL BE UP TO ASSESS.
--- NOTE | 2020-01-13 10:38 | NUR ---
PHYSICAL THERAPY CO-SIGN I approve of the Physical Therapy notes written above. CUCO DIMAS PT,DPT
--- NOTE | 2020-01-13 10:58 | NUR ---
case management received a call from patient's Estefany regarding discharge plans, educated her that patient would be returning home with [facility] when discharged. stated patient has a walker at home but no home oxygen. she also stated she would have patient's bed moved downstairs. she also stated there is a bathroom on the first floor. stated they didn't have any other needs at this time
--- NOTE | 2020-01-13 11:46 | NUR ---
PT DOES NOT QUALIFY FOR HOME O2. PRE AT REST ROOM AIR SPO2 95% HR 104 BP 133/67 DURING AMBULATION RA SPO2 97% HR 110 POST AMBULATION RA SPO2 97% HR 112 BP 129/74
[2020-01-13 12:00] VITALS: BP 141/81
--- NOTE | 2020-01-13 15:25 | NUR ---
VIRTUAL ASSISTANT FOR ADVERTISERS INTO SEE THE PATIENT.
[2020-01-13 16:00] VITALS: BP 139/66
[2020-01-13 20:00] VITALS: BP 137/70
--- NOTE | 2020-01-13 21:24 | NUR ---
PT RESTING IN BED. RESP-EASY AND REGULAR. NO C/O AT THIS TIME. [id number], SEE EMAR. CALL LIGHT IN REACH.
[2020-01-14] VITALS: BP 125/69
--- NOTE | 2020-01-14 00:15 | NUR ---
PT RESTING IN BED. RESP-EASY AND REGULAR. TOLERATING IV MEDICATION. CALL LIGHT IN REACH. SEE SHIFT ASSESSMENT.
--- NOTE | 2020-01-14 04:30 | NUR ---
SLEEPING IN BED. RESP-EASY AND REGULAR. CALL LIGHT IN REACH.
--- NOTE | 2020-01-14 06:00 | NUR ---
RESTING IN BED TOLERATED ROUTINE MED WITH NO PROBLEM. NO C/O AT THIS TIME. AYDEN DRAIN EMPTIED. CALL LIGHT IN REACH.
--- NOTE | 2020-01-14 06:06 | NUR ---
DR. YEUNG MADE ISELA PT AYDEN DRAIN PUT OUT YESTERDAY FROM 7PM-11PM 100CC. THEN FROM 11-7AM THIS AM 260CC OF LIGHT BLOODY COLOR DRAINAGE NOTED.
[2020-01-14 06:22] LABS: HEMATOCRIT 37.7 % (42.0-52.0); MEAN CELL VOLUME 88.9 fl (80.0-94.0); MEAN CORPUSCULAR HGB 27.8 pg (27.0-31.0); MEAN CORPUSCULAR HGB CONC 31.3 g/dl (33.0-37.0); MEAN PLATELET VOLUME 10.5 fl (9.6-12.3); PLATELET COUNT AUTOMATED 298 10*3/uL (130-400); RED BLOOD COUNT 4.24 10*6/uL (4.50-5.90); RED CELL DISTRI WIDTH 14.1 % (0-14.5); WHITE BLOOD COUNT 14.4 10*3/uL (4.8-10.8)
[2020-01-14 06:39] LABS: BUN 12 mg/dl (7-24); CHLORIDE 108 mmol/L (98-107); CREATININE 1.04 mg/dL (0.70-1.30); POTASSIUM 3.2 mmol/L (3.5-5.1); SODIUM 138 mmol/L (136-145)
[2020-01-14 06:57] LABS: PLATELET SUFFICIENCY NORMAL (NORMAL); POLYCHROMASIA SLIGHT; TOTAL CELLS COUNTED 100 #CELLS
[2020-01-14 10:01] VITALS: BP 143/66
--- NOTE | 2020-01-14 11:13 | NUR ---
POTASSIUM LEVEL THIS AM WAS 3.2, PT WAS GIVEN KCL 40 MEQ PO EARLIER THIS AM
[2020-01-14 12:00] VITALS: BP 127/71
--- NOTE | 2020-01-14 12:47 | NUR ---
stool collected for C-Diff and sent to the lab
--- NOTE | 2020-01-14 14:41 | NUR ---
pt has been ambulating in his room with the walker. pt has been OOB to chair majority of the day and still is. pt tolerating diet well. no c/o pain or acute distress noted. ABD sites are benign, no hematoma or bleeding noted. pt has been afebrile. pt inocencio diet well, no n/v noted. pt has had small watery green stools noted. no resp distress noted, will con't to monitor
[2020-01-14 16:00] VITALS: BP 133/68
--- NOTE | 2020-01-14 18:22 | NUR ---
PT BACK TO BED. LORTAB 5 MG GIVEN PO FOR PAIN. SEE MAR
[2020-01-14 20:00] VITALS: BP 141/74
--- NOTE | 2020-01-14 20:00 | NUR ---
Pt was recd at 1900 shift change was resting in bed queitly in bed and stated that pain is now a 2/10 after he was given the Lortab on day shift. Pt ambulated in the room and got up to chair. Pt is on room air and resp unlabored
[2020-01-15] VITALS: BP 146/75
--- NOTE | 2020-01-15 06:24 | NUR ---
Pt given am med. Pt is up in chair no distress noted. Call weber and walker within reach. No other needs at this time.
[2020-01-15 08:00] VITALS: BP 151/71
[2020-01-15 08:31] LABS: MEAN CELL VOLUME 89.2 fl (80.0-94.0); MEAN CORPUSCULAR HGB 28.4 pg (27.0-31.0); MEAN CORPUSCULAR HGB CONC 31.8 g/dl (33.0-37.0); MEAN PLATELET VOLUME 10.6 fl (9.6-12.3); PLATELET COUNT AUTOMATED 351 10*3/uL (130-400); RED BLOOD COUNT 4.26 10*6/uL (4.50-5.90); RED CELL DISTRI WIDTH 14.4 % (0-14.5); WHITE BLOOD COUNT 14.8 10*3/uL (4.8-10.8)
[2020-01-15 08:34] LABS: ALBUMIN 1.8 gm/dl (3.1-4.5); ALKALINE PHOSPHATASE 58 U/L (45-117); BUN 8 mg/dl (7-24); CHLORIDE 108 mmol/L (98-107); CREATININE 0.82 mg/dL (0.70-1.30); POTASSIUM 3.2 mmol/L (3.5-5.1); SGOT/AST 14 IU/L (3-35); SGPT/ALT 18 U/L (12-78); SODIUM 139 mmol/L (136-145); TOTAL PROTEIN 5.6 gm/dL (6.4-8.2)
[2020-01-15 08:42] LABS: OVALOCYTES FEW; PLATELET SUFFICIENCY NORMAL (NORMAL); TOTAL CELLS COUNTED 100 #CELLS; TOXIC GRANULATION SLIGHT
--- NOTE | 2020-01-15 09:14 | NUR ---
potassium level 3.2, pt was given KCL 40 meq po
[2020-01-15] MEDS ORDERED: TOUJEO SOL300 UNIT/1 SQ (10:52)
[2020-01-15] MEDS ORDERED: PANTOPRAZOLE SO40 MG PO (10:52)
[2020-01-15] MEDS ORDERED: ASPIRIN ADULT L81 M2 PO (10:52)
[2020-01-15] MEDS ORDERED: KLOR-CON 1010 ME1 PO (10:54)
--- NOTE | 2020-01-15 11:02 | NUR ---
Spoke to Juma at [facility] regarding ability to see patient tomorrow for lab draws. Juma confirmed [facility] will see patient tomorrow for lab draws. Tamera Bartlett notified.
[2020-01-15 11:30] VITALS: BP 141/73
--- NOTE | 2020-01-15 14:11 | NUR ---
PT D/C HOME AT APPROX 1330. PT WAS GIVEN ALL D/C PAPERWORK. PT WAS TAUGHT HOW TO EMPTY HIS AYDEN DRAIN. F/U APPTS. DISCUSSED. IV WAS REMOVED FROM RT AC AND PRESSURE DRESSING APPLIED. PT LEFT VIA WC IN STABLE CONDITION ACCOMPANIED BY UNIT LELE/AXEL
--- NOTE | 2020-01-16 11:07 | NUR ---
RESEARCH ATTORNEY SPOKE WITH THIS PATIENT VIA PHONE. RESEARCH ATTORNEY EXPLAINED [facility] IS UNABLE TO SEE THE PATIENT UNTIL 01/23/2020. RESEARCH ATTORNEY ASKED THIS PATIENT IF IT WOULD BE OKAY TO SEND HIS REFERRAL ELSE WHERE. PATIENT IS AGREEABLE. PATIENT STATED THAT IS ADDRESS HAS CHANGED FOR THE TIME BEING. HE PROVIDED [address] [place] [id number]. CASE MANAGEMENT WILL FIND ALTERNATIVE HOME HEALTH FOR THE PATIENT.
--- NOTE | 2020-01-16 11:09 | NUR ---
[facility] is stating their schedule is full and they will not be able to see this patient until January 22. I contacted [facility] and faxed referral. Waiting on review/acceptance.
--- NOTE | 2020-01-16 11:36 | NUR ---
Patient accepted with [facility]. They stated they will call patient this afternoon and a nurse will be out first thing tomorrow morning, Thursday01/17/2020. OBI Sandy contacted patient to notify.
--- NOTE | 2020-01-16 18:06 | NUR ---
OCCUPATIONAL THERAPY CO-SIGN I approve of the Occupational Therapy notes written above. JOSSIE CLEMENTE OTR/Galina
== END 2020-01-15 13:30 | disposition home or self-care (01) | DRG 417 ==
LOC: ED 14:09 → 4E 16:38 → EDHOLD 16:38 → 4E 17:22
PROVIDERS: Emergency Medicine; Hospitalist; Internal Medicine; Internal Medicine Gastroenterology; Internal Medicine Nephrology; Registered Nurse; Student in an Organized Health Care Education/Training Program; ADMIT Internal Medicine; ATTEND Internal Medicine
PROC: 4A02XM4 Measurement of Cardiac Total Activity, External Approach (ICD-10-PCS; 2020-01-05)
PROC: 3E073KZ Introduction of Other Diagnostic Substance into Coronary Artery, Percutaneous Approach (ICD-10-PCS; 2020-01-05)
PROC: 0FT44ZZ Resection of Gallbladder, Percutaneous Endoscopic Approach (ICD-10-PCS; principal; 2020-01-07)
PROC: 0D9670Z Drainage of Stomach with Drainage Device, Via Natural or Artificial Opening (ICD-10-PCS; 2020-01-09)
DX: K80.01 Calculus of gallbladder with acute cholecystitis with obstruction (principal); N17.0 Acute kidney failure with tubular necrosis; A41.9 Sepsis, unspecified organism; E87.1 Hypo-osmolality and hyponatremia; K56.7 Ileus, unspecified; J98.11 Atelectasis; I50.20 Unspecified systolic (congestive) heart failure; K56.600 Partial intestinal obstruction, unspecified as to cause; E11.65 Type 2 diabetes mellitus with hyperglycemia; R74.8 Abnormal levels of other serum enzymes; R79.82 Elevated C-reactive protein (CRP); E83.41 Hypermagnesemia; E03.9 Hypothyroidism, unspecified; F17.210 Nicotine dependence, cigarettes, uncomplicated; F41.9 Anxiety disorder, unspecified; Z96.651 Presence of right artificial knee joint; E11.51 Type 2 diabetes mellitus with diabetic peripheral angiopathy without gangrene; F32.9 Major depressive disorder, single episode, unspecified; I25.10 Atherosclerotic heart disease of native coronary artery without angina pectoris; R07.89 Other chest pain; I25.5 Ischemic cardiomyopathy; R91.1 Solitary pulmonary nodule; K57.90 Diverticulosis of intestine, part unspecified, without perforation or abscess without bleeding; E66.9 Obesity, unspecified; I65.29 Occlusion and stenosis of unspecified carotid artery; I11.0 Hypertensive heart disease with heart failure; E87.5 Hyperkalemia; M19.90 Unspecified osteoarthritis, unspecified site; E11.649 Type 2 diabetes mellitus with hypoglycemia without coma; E87.6 Hypokalemia; N14.1 Nephropathy induced by other drugs, medicaments and biological substances; T50.8X5A Adverse effect of diagnostic agents, initial encounter; Y92.238 Other place in hospital as the place of occurrence of the external cause; R00.1 Bradycardia, unspecified; Z95.1 Presence of aortocoronary bypass graft; Z82.49 Family history of ischemic heart disease and other diseases of the circulatory system; Z79.899 Other long term (current) drug therapy; Z79.02 Long term (current) use of antithrombotics/antiplatelets; Z68.29 Body mass index [BMI] 29.0-29.9, adult

== ENCOUNTER → 2020-02-15 | Outpatient (CLI) | payer MEDICARE ==
[~2020-02-15] MED LIST changes: +ASPIRIN ADULT L81 M2 PO; +ATORVASTATIN CA40 M1 PO; +FUROSEMIDE20 M1 PO; +KLOR-CON 1010 ME1 PO; +LEVOTHYROXINE150 MCG PO; +METOPROLOL SUCC50 M1 PO; +PANTOPRAZOLE SO40 MG PO
== END | disposition home or self-care (01) ==
LOC: RAD 14:45 → LAB 14:45
PROVIDERS: ATTEND Physician Assistant
DX: K80.00 Calculus of gallbladder with acute cholecystitis without obstruction (principal); I25.10 Atherosclerotic heart disease of native coronary artery without angina pectoris

== ENCOUNTER 2020-03-12 05:02 | Emergency (ER) | payer OTHER, MEDICARE ==
[~2020-03-12] VITALS: Ht 167.6 cm; Wt 79.4 kg
[2020-03-12 05:03] VITALS: BP 148/86
== END 2020-03-12 05:41 | disposition home or self-care (01) ==
LOC: ED 05:02
DX: S61.411A Laceration without foreign body of right hand, initial encounter (principal); F32.9 Major depressive disorder, single episode, unspecified; F41.9 Anxiety disorder, unspecified; I10 Essential (primary) hypertension; E03.9 Hypothyroidism, unspecified; E11.51 Type 2 diabetes mellitus with diabetic peripheral angiopathy without gangrene; E66.9 Obesity, unspecified; F17.210 Nicotine dependence, cigarettes, uncomplicated; Z68.30 Body mass index [BMI] 30.0-30.9, adult; Z90.49 Acquired absence of other specified parts of digestive tract; Z98.61 Coronary angioplasty status; Z90.89 Acquired absence of other organs; Z98.890 Other specified postprocedural states; Z96.653 Presence of artificial knee joint, bilateral; Z79.82 Long term (current) use of aspirin; Z79.899 Other long term (current) drug therapy; Z79.4 Long term (current) use of insulin; Y04.2XXA Assault by strike against or bumped into by another person, initial encounter; Y93.89 Activity, other specified; Y92.238 Other place in hospital as the place of occurrence of the external cause; Y99.8 Other external cause status

== ENCOUNTER 2020-11-18 22:42 | Emergency (ER) | payer MEDICARE ==
[~2020-11-18] VITALS: Ht 167.6 cm; Wt 83.9 kg
[2020-11-18 22:52] VITALS: BP 145/63
[2020-11-19] MEDS ORDERED: NAPROXEN250 MG PO (00:33)
== END 2020-11-19 01:15 | disposition home or self-care (01) ==
LOC: ED 22:42
DX: S20.229A Contusion of unspecified back wall of thorax, initial encounter (principal); F17.210 Nicotine dependence, cigarettes, uncomplicated; Z79.899 Other long term (current) drug therapy; W18.39XA Other fall on same level, initial encounter; Y93.89 Activity, other specified; Y92.89 Other specified places as the place of occurrence of the external cause; Y99.8 Other external cause status

== ENCOUNTER 2021-05-29 06:10 | Emergency (ER) | payer OTHER ==
[~2021-05-29] VITALS: Ht 165.1 cm; Wt 88.5 kg
[~2021-05-29 06:10] MED LIST changes: +NAPROXEN250 MG PO
[2021-05-29] MEDS ORDERED: CEPHALEXIN500 M1 PO (08:43)
[2021-05-29 08:56] VITALS: BP 144/70
== END 2021-05-29 08:57 | disposition home or self-care (01) ==
LOC: ED 06:10
DX: S61.411A Laceration without foreign body of right hand, initial encounter (principal); S09.90XA Unspecified injury of head, initial encounter; M54.2 Cervicalgia; Z79.899 Other long term (current) drug therapy; Z90.49 Acquired absence of other specified parts of digestive tract; Z95.1 Presence of aortocoronary bypass graft; Z98.890 Other specified postprocedural states; Z87.891 Personal history of nicotine dependence; W18.39XA Other fall on same level, initial encounter; Y93.89 Activity, other specified; Y92.89 Other specified places as the place of occurrence of the external cause; Y99.8 Other external cause status

== ENCOUNTER → 2022-01-30 | Outpatient (CLI) | payer OTHER ==
[~2022-01-30] MED LIST changes: +CEPHALEXIN500 M1 PO
== END | disposition home or self-care (01) ==
LOC: CARD 14:00
PROVIDERS: ATTEND Internal Medicine Cardiovascular Disease
DX: I08.0 Rheumatic disorders of both mitral and aortic valves (principal)

== ENCOUNTER → 2022-03-11 | Outpatient (CLI) | payer OTHER ==
[2022-03-11 07:50] LABS: BUN 18 mg/dl (9-23); CHLORIDE 102 mmol/L (98-107); POTASSIUM 4.5 mmol/L (3.4-5.1)
== END | disposition home or self-care (01) ==
LOC: LAB 04:55
PROVIDERS: ATTEND Surgery Vascular Surgery
DX: I25.5 Ischemic cardiomyopathy (principal); I73.9 Peripheral vascular disease, unspecified

== ENCOUNTER → 2022-08-20 | Outpatient (CLI) | payer OTHER ==
[~2022-08-20] MED LIST changes: +ENTRESTO 24 MG1 EACH PO; +GLIPIZIDE5 MG PO
[2022-08-20 07:50] LABS: BUN 22 mg/dl (9-23); CHLORIDE 101 mmol/L (98-107)
== END | disposition home or self-care (01) ==
LOC: LAB 03:28
PROVIDERS: ATTEND Internal Medicine Cardiovascular Disease
DX: I25.10 Atherosclerotic heart disease of native coronary artery without angina pectoris (principal); I25.5 Ischemic cardiomyopathy

== ENCOUNTER 2022-09-26 17:34 | Emergency (ER) | payer OTHER ==
[~2022-09-26] VITALS: Wt 83.0 kg
[2022-09-26 17:47] VITALS: BP 141/71
[2022-09-26 17:58] LABS: BASO % 0.5 % (0.0-1.0); EOS # 0.2 10*3/uL (0.0-0.4); EOS % 1.7 % (1.0-4.0); HEMATOCRIT 39.9 % (42.0-52.0); LYMPH # 1.3 10*3/uL (1.3-4.4); LYMPH % 15.2 % (27.0-41.0); MEAN CELL VOLUME 85.4 fl (80.0-94.0); MEAN CORPUSCULAR HGB 26.6 pg (27.0-31.0); MEAN CORPUSCULAR HGB CONC 31.1 g/dl (33.0-37.0); MEAN PLATELET VOLUME 10.6 fl (9.6-12.3); MONO # 0.9 10*3/uL (0.1-1.0); MONO % 9.8 % (3.0-9.0); NEUT # 6.2 10*3/uL (2.3-7.9); NEUT % 72.2 % (47.0-73.0); PLATELET COUNT AUTOMATED 377 10*3/uL (130-400); RED BLOOD COUNT 4.67 10*6/uL (4.50-5.90); RED CELL DISTRI WIDTH 14.5 % (0-14.5); WHITE BLOOD COUNT 8.6 10*3/uL (4.8-10.8)
[2022-09-26 18:09] LABS: ACT PARTIAL THROMBO TIME 30.9 SECONDS (20.0-32.1); INTERNATIONAL NORM RATIO 1.1 (2.0-3.5)
[2022-09-26 18:47] LABS: ALKALINE PHOSPHATASE 116 U/L (46-116); BUN 14 mg/dl (9-23); CHLORIDE 104 mmol/L (98-107); POTASSIUM 3.8 mmol/L (3.4-5.1); SGPT/ALT 12 U/L (10-49); TOTAL PROTEIN 7.1 gm/dL (6.0-8.0)
== END 2022-09-26 21:44 | disposition home or self-care (01) ==
LOC: ED 17:34
PROVIDERS: Student in an Organized Health Care Education/Training Program
DX: R07.89 Other chest pain (principal); I25.2 Old myocardial infarction; F17.210 Nicotine dependence, cigarettes, uncomplicated; Z79.82 Long term (current) use of aspirin; Z79.899 Other long term (current) drug therapy; Z79.4 Long term (current) use of insulin; Z90.49 Acquired absence of other specified parts of digestive tract; Z98.890 Other specified postprocedural states; Z90.89 Acquired absence of other organs

== ENCOUNTER 2022-11-05 13:43 | Emergency (ER) | payer OTHER ==
[~2022-11-05] VITALS: Ht 165.1 cm; Wt 72.6 kg
[2022-11-05 13:56] VITALS: BP 168/60
== END 2022-11-05 16:05 | disposition home or self-care (01) ==
LOC: ED 13:43
DX: M54.2 Cervicalgia (principal); R51.9 Headache, unspecified; I10 Essential (primary) hypertension; E11.9 Type 2 diabetes mellitus without complications; I25.10 Atherosclerotic heart disease of native coronary artery without angina pectoris; Z90.49 Acquired absence of other specified parts of digestive tract; Z96.653 Presence of artificial knee joint, bilateral; Z98.890 Other specified postprocedural states; Z95.5 Presence of coronary angioplasty implant and graft; Z90.89 Acquired absence of other organs; F17.210 Nicotine dependence, cigarettes, uncomplicated

== ENCOUNTER 2023-01-20 08:49 | Emergency (ER) | payer OTHER ==
[~2023-01-20] VITALS: Ht 165.1 cm; Wt 87.1 kg
[2023-01-20 09:01] VITALS: BP 178/66
[2023-01-20 09:29] LABS: BASO % 0.3 % (0.0-1.0); EOS # 0.1 10*3/uL (0.0-0.4); EOS % 1.2 % (1.0-4.0); HEMATOCRIT 43.3 % (42.0-52.0); LYMPH % 10.9 % (27.0-41.0); MEAN CELL VOLUME 88.4 fl (80.0-94.0); MEAN CORPUSCULAR HGB 27.3 pg (27.0-31.0); MEAN CORPUSCULAR HGB CONC 30.9 g/dl (33.0-37.0); MEAN PLATELET VOLUME 10.1 fl (9.6-12.3); MONO # 0.6 10*3/uL (0.1-1.0); MONO % 6.4 % (3.0-9.0); NEUT # 7.6 10*3/uL (2.3-7.9); NEUT % 80.7 % (47.0-73.0); PLATELET COUNT AUTOMATED 350 10*3/uL (130-400); RED CELL DISTRI WIDTH 13.9 % (0-14.5); WHITE BLOOD COUNT 9.5 10*3/uL (4.8-10.8)
[2023-01-20 09:38] LABS: ACT PARTIAL THROMBO TIME 32.1 SECONDS (20.0-32.1)
[2023-01-20 09:41] LABS: BILIRUBIN Negative (Negative); BLOOD Negative (Negative); CLARITY Clear (Clear); COLOR Yellow (Yellow); GLUCOSE 2+ (Negative); KETONE Negative (Negative); LEUKO ESTERASE Negative (Negative); NITRITE Negative (Negative); SPECIFIC GRAVITY 1.015 (1.001-1.030); UROBILINOGEN 0.2 E.U./dl (0.0-1.0)
[2023-01-20 09:46] LABS: ALKALINE PHOSPHATASE 125 U/L (46-116); BUN 14 mg/dl (9-23); CHLORIDE 100 mmol/L (98-107); LIPASE 52 U/L (12-53); POTASSIUM 3.9 mmol/L (3.4-5.1); SGPT/ALT 10 U/L (5-49); TOTAL PROTEIN 7.4 gm/dL (6.0-8.0)
[2023-01-20 09:50] LABS: BACTERIA 1+; CALCIUM OXALATE CRYSTALS Trace; HYALINE CAST 0-2
== END 2023-01-20 12:50 | disposition home or self-care (01) ==
LOC: ED 08:49
PROVIDERS: Emergency Medicine
DX: E11.649 Type 2 diabetes mellitus with hypoglycemia without coma (principal); I10 Essential (primary) hypertension; R10.2 Pelvic and perineal pain; Z96.653 Presence of artificial knee joint, bilateral; Z90.49 Acquired absence of other specified parts of digestive tract; Z95.5 Presence of coronary angioplasty implant and graft; Z90.89 Acquired absence of other organs; Z98.890 Other specified postprocedural states; F17.200 Nicotine dependence, unspecified, uncomplicated

== ENCOUNTER 2023-08-29 19:20 | Emergency (ER) | payer OTHER ==
[~2023-08-29] VITALS: Ht 167.6 cm; Wt 86.2 kg
[2023-08-29] MEDS ORDERED: SODIUM CHLORIDE 0.9% 1,000 ML IV ONE (19:30)
[2023-08-29 19:46] LABS: BASO % 0.5 % (0.0-1.0); EOS # 0.2 10*3/uL (0.0-0.4); EOS % 1.8 % (1.0-4.0); HEMATOCRIT 40.7 % (42.0-52.0); LYMPH # 1.5 10*3/uL (1.3-4.4); LYMPH % 16.5 % (27.0-41.0); MEAN CORPUSCULAR HGB 26.5 pg (27.0-31.0); MEAN CORPUSCULAR HGB CONC 30.5 g/dl (33.0-37.0); MONO # 0.8 10*3/uL (0.1-1.0); MONO % 8.5 % (3.0-9.0); NEUT # 6.4 10*3/uL (2.3-7.9); NEUT % 72.2 % (47.0-73.0); PLATELET COUNT AUTOMATED 378 10*3/uL (130-400); RED BLOOD COUNT 4.68 10*6/uL (4.50-5.90); RED CELL DISTRI WIDTH 14.7 % (0-14.5); WHITE BLOOD COUNT 8.8 10*3/uL (4.8-10.8)
[2023-08-29 19:58] LABS: ACT PARTIAL THROMBO TIME 31.1 SECONDS (20.0-32.1)
[2023-08-29 20:01] LABS: ALKALINE PHOSPHATASE 129 U/L (46-116); BUN 19 mg/dl (9-23); CHLORIDE 108 mmol/L (98-107); POTASSIUM 3.9 mmol/L (3.4-5.1); SGPT/ALT 8 U/L (5-49); TOTAL PROTEIN 7.5 gm/dL (6.0-8.0)
[2023-08-29 20:48] VITALS: BP 184/94
== END 2023-08-29 22:28 | disposition home or self-care (01) ==
LOC: ED 19:20
PROVIDERS: Nurse Practitioner Family
DX: R55 Syncope and collapse (principal); E86.0 Dehydration; R07.89 Other chest pain; H53.2 Diplopia; F41.9 Anxiety disorder, unspecified; F32.A Depression, unspecified; I10 Essential (primary) hypertension; E11.65 Type 2 diabetes mellitus with hyperglycemia; E83.41 Hypermagnesemia; E87.1 Hypo-osmolality and hyponatremia; F17.210 Nicotine dependence, cigarettes, uncomplicated; Z90.49 Acquired absence of other specified parts of digestive tract; Z90.89 Acquired absence of other organs; Z98.890 Other specified postprocedural states; Z95.5 Presence of coronary angioplasty implant and graft; Z96.653 Presence of artificial knee joint, bilateral; X30.XXXA Exposure to excessive natural heat, initial encounter; Y93.53 Activity, golf; Y92.39 Other specified sports and athletic area as the place of occurrence of the external cause; Y99.8 Other external cause status

== ENCOUNTER → 2023-10-01 | Outpatient (CLI) | payer MEDICARE | END | disposition home or self-care (01) | LOC: CARD 00:20 | PROVIDERS: ATTEND Internal Medicine Cardiovascular Disease | DX: I34.0 Nonrheumatic mitral (valve) insufficiency (principal); I42.9 Cardiomyopathy, unspecified ==

== ENCOUNTER → 2023-11-05 | Outpatient (CLI) | payer MEDICARE ==
[~2023-11-05] MED LIST changes: -ENTRESTO 24 MG1 EACH PO; +ENTRESTO 49 MG1 EACH PO; +GLIPIZIDE XL2.5 M1 PO; +METOPROLOL SUCC25 M2 PO; -METOPROLOL SUCC50 M1 PO; +Regadenoson 0.4 MG/5 ML SYR IV ONE; +TRESIBA FL100 UNIT/1 SQ; +Technetium Tc 99M Tetrofosmi 0.23 MG KIT IJ SCH
== END | disposition home or self-care (01) ==
LOC: CARD 01:55
PROVIDERS: ATTEND Internal Medicine Cardiovascular Disease
DX: I25.5 Ischemic cardiomyopathy (principal); I08.0 Rheumatic disorders of both mitral and aortic valves; R06.02 Shortness of breath

== ENCOUNTER → 2024-10-18 | Outpatient (CLI) | payer MEDICARE ==
[~2024-10-18] MED LIST changes: +HYDROCODONE-AC1 EAC1 PO; -Regadenoson 0.4 MG/5 ML SYR IV ONE; -Technetium Tc 99M Tetrofosmi 0.23 MG KIT IJ SCH
== END | disposition home or self-care (01) ==
LOC: RESCLI 09:17
PROVIDERS: ATTEND Internal Medicine
DX: R42 Dizziness and giddiness (principal); I10 Essential (primary) hypertension; E78.5 Hyperlipidemia, unspecified; E03.9 Hypothyroidism, unspecified; E11.9 Type 2 diabetes mellitus without complications; Z79.82 Long term (current) use of aspirin; Z79.899 Other long term (current) drug therapy; Z98.890 Other specified postprocedural states

== ENCOUNTER → 2024-11-25 | Outpatient (CLI) | payer MEDICARE ==
[~2024-11-25] MED LIST changes: +IOHEXOL 300 MG/ML 100 ML VIAL IV ONE; +IOHEXOL 300 MG/ML 100 ML VIAL ONE
== END | disposition home or self-care (01) ==
LOC: CT 00:32
PROVIDERS: ATTEND Physician Assistant
DX: K57.30 Diverticulosis of large intestine without perforation or abscess without bleeding (principal); N28.1 Cyst of kidney, acquired; J98.11 Atelectasis; J90 Pleural effusion, not elsewhere classified; R63.4 Abnormal weight loss; R63.0 Anorexia; M47.816 Spondylosis without myelopathy or radiculopathy, lumbar region; Z90.49 Acquired absence of other specified parts of digestive tract